=== PATIENT | male | born 1955 | race African-American/Black ===

== ENCOUNTER 2020-08-21 17:56 | Inpatient (IN) ==
[2020-08-21] MEDS ORDERED: SODIUM CHLORIDE 0.9% 1000ML 1,000 ML IV SCH ×3 (18:15→20:14)
[2020-08-21] MEDS ORDERED: ACETAMINOPHEN 500 MG TAB PO STA (18:16)
[2020-08-21] MEDS ORDERED: VANCOMYCIN HCL 2,750 MG in SODIUM CHLORIDE 0.9% 500 ML IV ONE (18:16)
[2020-08-21] MEDS ORDERED: VANCOMYCIN CONSULT ACTIVE PRN (18:16)
--- NOTE | 2020-08-21 18:18 | Emergency Department Note ---
Impression & Plan Sepsis, Cellulitis, High serum chloride, Pneumonia ED Provider Note NAME: GUILLERMO LR AGE: 64 SEX: M : 1955 ARRIVES VIA: Walk-In INFORMANT: Patient ED PROVIDER(S): Johnny Daniels DO CHIEF COMPLAINT: not feeling well HPI: Patient is a 64-year-old diabetic who presents to the ER for chest wall abscess that has been draining. He notes it started as a pimple about 3 weeks ago and has been getting worse. Today he has noticed chills. They had him on IV clindamycin and they believe that her reaction and consequently switched him to Bactrim and they believe he continues to have a reaction so they put him on Rocephin and start him on steroids and Benadryl today. He admits to fevers. No belly pain nausea vomiting or diarrhea. No dysuria, urgency, or frequency. No cough or runny nose. No other exacerbating or remitting factors. ROS: See above HPI for pertinent positives & negatives. A total of 10 systems reviewed and were otherwise negative. PAST MEDICAL HISTORY:See Below PAST SURGICAL HISTORY:See Below FAMILY HISTORY:See Below SOCIAL HISTORY:See Below HOME MEDICATIONS:See Below ALLERGIES:See Below VITALS:See Below PHYSICAL EXAMINATION: GENERAL: Sitting up in bed, alert, ill-appearing, disheveled EYE EXAM: normal conjunctiva. OROPHARYNX: no exudate, no erythema, buccal mucosa, and tongue normal and mucous membranes are moist. Lower lip appears slightly larger than upper lip. NECK: supple, no nuchal rigidity, no adenopathy, non-tender LUNGS: Clear to auscultation. Normal chest wall mechanics HEART: Tachycardic, S1 normal and S2 normal ABDOMEN: abdomen soft, non-tender, normo-active bowel sounds, no masses, no rebound or guarding. BACK: Back is symmetrical on inspection and there is no deformity, no midline tenderness, no CVA tenderness. SKIN: Erythema and swelling over right pack with a small opening no drainage. Firmness in the right axilla with redness. UPPER EXTREMITIES: upper extremities are grossly normal. LOWER EXTREMITIES: No pitting edema. NEURO EXAM: Normal sensorium, cranial nerves II-XII grossly intact, normal speech, no gross weakness of arms, no gross weakness of legs. MEDICAL DECISION MAKING: Patient is a 62-year-old prisoner who is a diabetic who presents the ER for right chest wall abscess which has been draining. He was referred in as he was placed on Clinda and then switched to Bactrim and then switched to Rocephin as I believe he had a allergic reaction to Clinda and Bactrim. He is currently febrile and tachycardic with a heart rate in the 130s and temperature at 102. He denies all other complaints with exception of tenderness over his right chest wall and feeling hot and cold. IV was established blood work was obtained. He was given IV vancomycin and he had already received IM Rocephin earlier today. He already received steroids. Ultrasound shows a likely phlegmon which I do believe was an abscess that is currently draining. Chest x-ray did support a bilateral lower lobe infiltrates. Patient had already received IM Rocephin prio r to arrival. Patient was discussed with hospitalist for further evaluation. Triage Nursing notes reviewed. Limited review of prior medical records performed Vital Signs: reviewed and remarkable for febrile and tachy Differential diagnosis: Differential diagnosis includes etiologies such as sepsis, UTI, pneumonia, metabolic, electrolyte abnormalities, cardiac sources, intracerebral event, toxicologic, neurological, as well as others were entertained. ER treatment provided: See below Diagnostics interpreted by me: ECG: Sinus tachycardia rate of [address] wave changes in the high lateral leads QTC 386 Cardiac Monitoring: An order was placed for continuous cardiac monitoring. The monitor shows a rate of 135 with sinus rhythm. Laboratory studies: As stated above and show below. Imaging studies: Chest x-ray with bilateral lower lobes infiltrates Ultrasound chest shows cellulitis and no focal abscess Consultation(s): Discussed with hospitalist for further evaluation Procedures: none Critical Care: I have personally spent 32 minutes of critical care time in the direct management of this patient. This includes bedside care, interpretation of diagnostic studies, and testing, discussion with consultants, patient, and family members, and other required patient management activities. This 32 minutes is in excess of all separately billable procedures. Past Med/Surg History Social History Smoking Status: Former smoker Feels Safe at Home: Yes Allergies Allergies Allergy/AdvReac Type Severity Reaction Status Date / Time clindamycin Allergy Rash Verified 08/21/20 19:53 Pork/Porcine Containing Allergy Unknown Verified 08/21/20 19:53 Products sulfamethoxazole Allergy Rash Verified 08/21/20 19:53 [From Bactrim] trimethoprim [From Bactrim] Allergy Rash Verified 08/21/20 19:53 sodium chloride AdvReac Unknown Verified 08/21/20 19:53 [From [place] Nasal] Home Meds Home Medications Medication Instructions Recorded Confirmed aspirin [Aspir-Low] 81 mg PO DAILY 08/21/20 08/21/20 atorvastatin 20 mg PO DAILY 08/21/20 08/21/20 brimonidine 1 drp OPB TID 08/21/20 08/21/20 capsaicin 1 applic TOPICAL BID 08/21/20 08/21/20 ceftriaxone 1 g IV DAILY 08/21/20 08/21/20 cetirizine 10 mg PO DAILY 08/21/20 08/21/20 diphenhydramine HCl 50 mg PO TID 08/21/20 08/21/20 dorzolamide 1 drp OPB TID 08/21/20 08/21/20 ibuprofen 600 mg PO TID PRN 08/21/20 08/21/20 insulin glargine [Semglee U-100 60 unit SUBCUT DAILY 08/21/20 08/21/20 Insulin] latanoprost 1 drp OPB HS 08/21/20 08/21/20 lisinopril 5 mg PO DAILY 08/21/20 08/21/20 metformin 500 mg PO BID 08/21/20 08/21/20 methylprednisolone sodium succ 125 mg IM DAILY 08/21/20 08/21/20 [Solu-Medrol] timolol 1 drp OPB QAM 08/21/20 08/21/20 Results & Data (ED) Vital Signs Vital Signs - 24 hr 08/21/20 17:58 08/21/20 18:12 08/21/20 18:15 Temperature 37.4 C 39.0 C H Temperature Source Skin Oral Pulse Rate 147 H 132 H 132 H Pulse Rate [Right Finger] 133 H Pulse Rate from SpO2 Sensor 132 H 135 H Respiratory Rate 20 27 H 24 Respiratory Effort / Characteristics Non-Labored Spontaneous Non-Labored Spontaneous Respiratory Depth Normal Normal Respiratory Pattern Regular Regular Blood Pressure 111/82 146/86 H Blood Pressure [Right Arm] 146/86 H Blood Pressure Mean 91 106 Blood Pressure Mean [Right Arm] 106 Blood Pressure Position [Right Arm] Lying Pulse Oximetry 95 93 92 Oxygen Delivery Method Nasal Cannula Room Air Sepsis Recent Fever Within 48 Hours No Sepsis New/Unexplained Change in Mental Status N/A Sepsis Action Taken by Nursing No Action Required 08/21/20 18:20 08/21/20 18:26 08/21/20 18:30 Temperature Temperature Source Pulse Rate 132 H 132 H 129 H Pulse Rate [Right Finger] Pulse Rate from SpO2 Sensor 132 H Respiratory Rate 31 H 22 27 H Respiratory Effort / Characteristics Non-Labored Spontaneous Respiratory Depth Respiratory Pattern Blood Pressure Blood Pressure [Right Arm] Blood Pressure Mean Blood Pressure Mean [Right Arm] Blood Pressure Position [Right Arm] Pulse Oximetry 97 95 Oxygen Delivery Method Room Air Sepsis Recent Fever Within 48 Hours Sepsis New/Unexplained Change in Mental Status Sepsis Action Taken by Nursing 08/21/20 18:40 08/21/20 18:43 08/21/20 18:50 Temperature Temperature Source Pulse Rate 127 H 124 H Pulse Rate [Right Finger] Pulse Rate from SpO2 Sensor 127 H 124 H Respiratory Rate 24 24 Respiratory Effort / Characteristics Non-Labored Spontaneous Respiratory Depth Respiratory Pattern Blood Pressure Blood Pressure [Right Arm] Blood Pressure Mean Blood Pressure Mean [Right Arm] Blood Pressure Position [Right Arm] Pulse Oximetry 95 96 96 Oxygen Delivery Method Room Air Sepsis Recent Fever Within 48 Hours Sepsis New/Unexplained Change in Mental Status Sepsis Action Taken by Nursing 08/21/20 19:54 08/21/20 20:33 08/21/20 21:18 Temperature Temperature Source Pulse Rate Pulse Rate [Right Finger] 117 H 113 H 107 H Pulse Rate from SpO2 Sensor Respiratory Rate 20 20 20 Respiratory Effort / Characteristics Respiratory Depth Respiratory Pattern Blood Pressure Blood Pressure [Right Arm] 129/70 122/70 117/70 Blood Pressure Mean Blood Pressure Mean [Right Arm] 89 87 85 Blood Pressure Position [Right Arm] Pulse Oximetry 93 95 94 Oxygen Delivery Method Room Air Room Air Room Air Sepsis Recent Fever Within 48 Hours Sepsis New/Unexplained Change in Mental Status Sepsis Action Taken by Nursing Laboratory Data Result diagrams: 08/21/20 18:28 08/21/20 18:28 Lab Results 08/21/20 08/21/20 08/21/20 Range/Units 18:28 18:28 18:28 WBC 8.60 (4.8-10.8) K/uL RBC 5.07 (4.7-6.1) M/uL Hgb 16.7 (14.0-18.0) g/dL Hct 47.6 (42-52) % MCV 93.9 (80-100) fL MCH 32.9 (25-34) pg MCHC 35.1 (32-36) g/dL RDW Std Deviation 43.7 (36.4-46.3) fL RDW Coeff of Samuel 12.8 (11.5-14.5) % Plt Count 155 (130-400) K/uL MPV 10.0 (7.4-10.4) fL Immature Gran % (Auto) 0.2 % Neut % (Auto) 88.8 % Lymph % (Auto) 6.4 % [place] % (Auto) 4.0 % Eos % (Auto) 0.6 % Baso % (Auto) 0.0 % Neut # (Auto) 7.64 H (1.4-6.5) K/uL Lymph # (Auto) 0.55 L (1.2-3.4) K/uL [place] # (Auto) 0.34 (0.11-0.59) K/uL Eos # (Auto) 0.05 (0-0.5) K/uL Baso # (Auto) 0.00 (0-0.2) K/uL Immature Gran # (Auto) 0.02 (0.00-0.02) K/uL PT (9.0-12.0) Seconds INR (0.9-1.1) APTT (21.0-31.0) Seconds PTT Ratio Sodium 138 (136-145) mmol/L Potassium 3.9 (3.5-5.1) mmol/L Chloride 109 H (98-107) mmol/L Carbon Dioxide 20 L (21-32) mmol/L Anion Gap 9.0 (3-11) BUN 14 (7-18) mg/dl Creatinine 1.34 (0.6-1.4) mg/dl Est Cr Clr Drug Dosing 72.6 ml/min Est GFR ( Amer) 65.3 ml/min Est GFR (Non-Af Amer) 56.4 ml/min BUN/Creatinine Ratio 10.1 (10-20) Glucose 214 H (70-99) mg/dl Lactate (0.4-2.0) mmol/L Calcium 9.1 (8.5-10.1) mg/dl Magnesium 1.9 (1.8-2.4) mg/dl Total Bilirubin 1.3 H (0.2-1) mg/dl AST 39 H (15-37) U/L ALT 47 (12-78) U/L Alkaline Phosphatase 106 (45-117) U/L Troponin I < 0.015 (0-0.045) ng/ml Total Protein 7.1 (6.4-8.2) gm/dl Albumin 3.4 (3.4-5.0) gm/dl Globulin 3.7 (2.5-4.0) gm/dl Albumin/Globulin Ratio 0.9 (0.9-2) Procalcitonin 0.85 H (0-0.5) ng/ml COVID-19 Eval Order SARS-CoV-2 (PCR) (Negative) 08/21/20 08/21/20 08/21/20 Range/Units 18:28 18:28 19:15 WBC (4.8-10.8) K/uL RBC (4.7-6.1) M/uL Hgb (14.0-18.0) g/dL Hct (42-52) % MCV (80-100) fL MCH (25-34) pg MCHC (32-36) g/dL RDW Std Deviation (36.4-46.3) fL RDW Coeff of Samuel (11.5-14.5) % Plt Count (130-400) K/uL MPV (7.4-10.4) fL Immature Gran % (Auto) % Neut % (Auto) % Lymph % (Auto) % [place] % (Auto) % Eos % (Auto) % Baso % (Auto) % Neut # (Auto) (1.4-6.5) K/uL Lymph # (Auto) (1.2-3.4) K/uL [place] # (Auto) (0.11-0.59) K/uL Eos # (Auto) (0-0.5) K/uL Baso # (Auto) (0-0.2) K/uL Immature Gran # (Auto) (0.00-0.02) K/uL PT 11.0 (9.0-12.0) Seconds INR 1.1 (0.9-1.1) APTT 22.4 (21.0-31.0) Seconds PTT Ratio 0.9 Sodium (136-145) mmol/L Potassium (3.5-5.1) mmol/L Chloride (98-107) mmol/L Carbon Dioxide (21-32) mmol/L Anion Gap (3-11) BUN (7-18) mg/dl Creatinine (0.6-1.4) mg/dl Est Cr Clr Drug Dosing ml/min Est GFR ( Amer) ml/min Est GFR (Non-Af Amer) ml/min BUN/Creatinine Ratio (10-20) Glucose (70-99) mg/dl Lactate 2.1 H* (0.4-2.0) mmol/L Calcium (8.5-10.1) mg/dl Magnesium (1.8-2.4) mg/dl Total Bilirubin (0.2-1) mg/dl AST (15-37) U/L ALT (12-78) U/L Alkaline Phosphatase (45-117) U/L Troponin I (0-0.045) ng/ml Total Protein (6.4-8.2) gm/dl Albumin (3.4-5.0) gm/dl Globulin (2.5-4.0) gm/dl Albumin/Globulin Ratio (0.9-2) Procalcitonin (0-0.5) ng/ml COVID-19 Eval Order Covid19 at [facility] SARS-CoV-2 (PCR) (Negative) 08/21/20 08/21/20 Range/Units 19:15 20:40 WBC (4.8-10.8) K/uL RBC (4.7-6.1) M/uL Hgb (14.0-18.0) g/dL Hct (42-52) % MCV (80-100) fL MCH (25-34) pg MCHC (32-36) g/dL RDW Std Deviation (36.4-46.3) fL RDW Coeff of Samuel (11.5-14.5) % Plt Count (130-400) K/uL MPV (7.4-10.4) fL Immature Gran % (Auto) % Neut % (Auto) % Lymph % (Auto) % [place] % (Auto) % Eos % (Auto) % Baso % (Auto) % Neut # (Auto) (1.4-6.5) K/uL Lymph # (Auto) (1.2-3.4) K/uL [place] # (Auto) (0.11-0.59) K/uL Eos # (Auto) (0-0.5) K/uL Baso # (Auto) (0-0.2) K/uL Immature Gran # (Auto) (0.00-0.02) K/uL PT (9.0-12.0) Seconds INR (0.9-1.1) APTT (21.0-31.0) Seconds PTT Ratio Sodium (136-145) mmol/L Potassium (3.5-5.1) mmol/L Chloride (98-107) mmol/L Carbon Dioxide (21-32) mmol/L Anion Gap (3-11) BUN (7-18) mg/dl Creatinine (0.6-1.4) mg/dl Est Cr Clr Drug Dosing ml/min Est GFR ( Amer) ml/min Est GFR (Non-Af Amer) ml/min BUN/Creatinine Ratio (10-20) Glucose (70-99) mg/dl Lactate 1.6 (0.4-2.0) mmol/L Calcium (8.5-10.1) mg/dl Magnesium (1.8-2.4) mg/dl Total Bilirubin (0.2-1) mg/dl AST (15-37) U/L ALT (12-78) U/L Alkaline Phosphatase (45-117) U/L Troponin I (0-0.045) ng/ml Total Protein (6.4-8.2) gm/dl Albumin (3.4-5.0) gm/dl Globulin (2.5-4.0) gm/dl Albumin/Globulin Ratio (0.9-2) Procalcitonin (0-0.5) ng/ml COVID-19 Eval Order SARS-CoV-2 (PCR) NEGATIVE (Negative) Administered Medications Discontinued Medications Acetaminophen (Acetaminophen 500 Mg Tab) 1,000 mg PO NOW STA Stop: 08/21/20 18:17 Last Admin: 08/21/20 18:30 Dose: 1,000 mg Documented by: [id number] Sodium Chloride (Nss 1000ml) 1,000 mls @ 999 mls/hr IV .Q1H1M VINCENT Stop: 08/21/20 21:14 Last Infusion: 08/21/20 23:07 Dose: 0 mls/hr Documented by: [id number] Admin: 08/21/20 20:24 Dose: 999 mls/hr Documented by: [id number] Sodium Chloride (Nss 1000ml) 1,000 mls @ 999 mls/hr IV .Q1H1M VINCENT Stop: 08/21/20 20:13 Last Infusion: 08/21/20 20:17 Dose: 0 mls/hr Documented by: [id number] Admin: 08/21/20 19:11 Dose: 999 mls/hr Documented by: [id number] Sodium Chloride (Nss 1000ml) 1,000 mls @ 999 mls/hr IV .Q1H1M VINCENT Stop: 08/21/20 19:14 Last Infusion: 08/21/20 19:11 Dose: 0 mls/hr Documented by: [id number] Admin: 08/21/20 18:26 Dose: 999 mls/hr Documented by: [id number] Vancomycin HCl 2,750 mg/ (Sodium Chloride) 555 mls @ 200 mls/hr IV NOW ONE Stop: 08/21/20 21:02 Last Admin: 08/21/20 18:53 Dose: 200 mls/hr Documented by: [id number] Imaging Data Radiologist's Impression: Chest X-Ray 08/21/20 18:13 XR chest 1V portable HISTORY: SEPSIS COMPARISON: Chest 07/11/2013. FINDINGS: No pneumothorax. No pleural effusions. The heart is normal in size. There are patchy bilateral lower lung zone airspace opacities with mild interstitial thickening. The upper lung zones appear clear. No evidence for pulmonary edema. IMPRESSION: Bilateral lower lung zone patchy airspace opacities. This likely represents a pneumonia and could be secondary to a viral process. ACT 112: Negative or not required by law. Electronically signed by: Milan Nogueira M.D. 08/21/2020 6:54 PM Soft Tissue Ultrasound 08/21/20 18:20 US softtissue [facility]/uprback CLINICAL HISTORY: r chest wall cellulitis COMPARISON STUDY: None. FINDINGS: Real-time sonographic imaging of the right chest was performed with guest experience representative images submitted. Thickening and increased echogenicity within the subcutaneous fat the right chest wall with associated subcutaneous edema. This favors a cellulitis. There is an ill-defined subcutaneous complex avascular collection at this location measuring 2.5 x 1.5 x 0.7 cm. This could represent a small phlegmon/developing abscess. IMPRESSION: 1. Thickening and increased echogenicity within the subcutaneous fat the right chest wall with associated subcutaneous edema. This favors a cellulitis. 2. There is an ill-defined subcutaneous complex avascular collection at this loc ation measuring 2.5 x 1.5 x 0.7 cm. This could represent a small phlegmon/developing abscess. ACT 112: Negative or not required by law. Electronically signed by: Milan Nogueira M.D. 08/21/2020 7:46 PM Discharge Plan Visit Data Chief Complaint: Skin Problem Stated Complaint: LUMP ON CHEST ED Provider: Johnny Daniels Discharge Problem: Sepsis, Cellulitis, High serum chloride, Pneumonia Patient Disposition: Admitted As Inpatient Discharge Instructions Interventions: ED Discharge Assessment Last Done: 08/21/20 23:02 Discharge Problem: Sepsis Qualifiers: Sepsis type: sepsis due to unspecified organism Sepsis acute organ dysfunction status: unspecified Qualified Code(s): A41.9 - Sepsis, unspecified organism Cellulitis Qualifiers: Site of cellulitis: unspecified site Qualified Code(s): L03.90 - Cellulitis, unspecified Pneumonia Qualifiers: Pneumonia type: due to unspecified organism Laterality: unspecified laterality Lung location: unspecified part of lung Qualified Code(s): J18.9 - Pneumonia, unspecified organism
[2020-08-21 18:47] LABS: Eosinophils # (auto) 0.05 K/uL (0-0.5); Eosinophils % (auto) 0.6 %; Hematocrit (blood only) 47.6 % (42-52); Hemoglobin 16.7 g/dL (14.0-18.0); Immature Granulocytes # (auto) 0.02 K/uL (0.00-0.02); Immature Granulocytes % (auto) 0.2 %; Lymphocytes # (auto) 0.55 K/uL (1.2-3.4); Lymphocytes % (auto) 6.4 %; Mean Corpuscular Hemoglobin 32.9 pg (25-34); Mean Corpuscular Hgb Conc 35.1 g/dL (32-36); Mean Corpuscular Volume 93.9 fL (80-100); Monocytes # (auto) 0.34 K/uL (0.11-0.59); Neutrophils # (auto) 7.64 K/uL (1.4-6.5); Neutrophils % (auto) 88.8 %; Platelet Count 155 K/uL (130-400); RDW Coefficient of Variation 12.8 % (11.5-14.5); RDW Standard Deviation 43.7 fL (36.4-46.3); Red Blood Count 5.07 M/uL (4.7-6.1)
--- NOTE | 2020-08-21 18:55 | XRay Report ---
XR chest 1V portable HISTORY: SEPSIS COMPARISON: Chest 07/11/2013. FINDINGS: No pneumothorax. No pleural effusions. The heart is normal in size. There are patchy bilate ral lower lung zone airspace opacities with mild interstitial thickening. The upper lung zones appear clear. No evidence for pulmonary edema. IMPRESSION: Bilateral lower lung zone patchy airspace opacities. This likely represents a pneumonia and could be secondary to a viral process. ACT 112: Negative or not required by law. Electronically signed by: Milan Nogueira M.D. 08/21/2020 6:54 PM
[2020-08-21 19:10] LABS: INR 1.1 (0.9-1.1); Partial Thromboplastin Ratio 0.9; Partial Thromboplastin Time 22.4 Seconds (21.0-31.0)
[2020-08-21 19:27] LABS: Alanine Aminotransferase 47 U/L (12-78); Albumin Level 3.4 gm/dl (3.4-5.0); Aspartate Aminotransferase 39 U/L (15-37); BUN Creatinine Ratio 10.1 (10-20); Blood Urea Nitrogen 14 mg/dl (7-18); Calcium 9.1 mg/dl (8.5-10.1); Carbon Dioxide 20 mmol/L (21-32); Chloride 109 mmol/L (98-107); Creatinine Clr Calc Pharmacy 72.6 ml/min; Est GFR (African American) 65.3 ml/min; Est GFR (Non-African American) 56.4 ml/min; Glucose 214 mg/dl (70-99); Magnesium 1.9 mg/dl (1.8-2.4); Potassium 3.9 mmol/L (3.5-5.1); Sodium 138 mmol/L (136-145)
[2020-08-21 19:31] LABS: Albumin Globulin Ratio 0.9 (0.9-2); Alkaline Phosphatase 106 U/L (45-117); Bilirubin,Total 1.3 mg/dl (0.2-1); Globulin 3.7 gm/dl (2.5-4.0); Total Protein 7.1 gm/dl (6.4-8.2); Troponin I < 0.015 ng/ml (0-0.045)
--- NOTE | 2020-08-21 19:47 | Ultrasound Report ---
US softtissue chstwall/uprback CLINICAL HISTORY: r chest wall cellulitis COMPARISON STUDY: None. FINDINGS: Real-time sonographic imaging of the right chest was performed with provider service representative images s ubmitted. Thickening and increased echogenicity within the subcutaneous fat the right chest wall with associated subcutaneous edema. This favors a cellulitis. There is an ill-defined subcutaneous comple x avascular collection at this location measuring 2.5 x 1.5 x 0.7 cm. This could represent a small ph legmon/developing abscess. IMPRESSION: 1. Thickening and increased echogenicity within the subcutaneous fat the right chest wall with associ ated subcutaneous edema. This favors a cellulitis. 2. There is an ill-defined subcutaneous complex avascular collection at this location measuring 2.5 x 1.5 x 0.7 cm. This could represent a small phlegmon/developing abscess. ACT 112: Negative or not required by law. Electronically signed by: Milan Nogueira M.D. 08/21/2020 7:46 PM
--- NOTE | 2020-08-21 21:47 | History & Physical Report ---
Date of Service August 21, 2020 Assessment & Plan (1) Cellulitis: Benito Goel is a 64-year-old male with past medical history significant for hypertension, diabetes, hyperlipidemia; who presents for concerns of lump on chest over the last week. Cellulitis: -Chest well-demarcated including into axillary fold for monitoring of progression or regression of erythema -Soft tissue ultrasound of chest wall demonstrating thickening with increased echogenicity within the subcu fat favoring cellulitis -CT chest without contrast demonstrating fat stranding without visualization of fluid collection or abscess -Lactate initially elevated in ED with subsequent downtrend -Prior to arrival patient had been receiving Bactrim/Clinda/ceftriaxone at varying times over the week without success and improvement -Uncertain if gram-negative coverage necessary at this time given patient's diabetes history -Continue vancomycin -Recheck skin in a.m. with potential expansion if indicated Diabetes: -Hold home oral regimen -BSG's ACHS -Sliding scale insulin ordered Hypertension: -Continue home lisinopril 5 mg daily Hyperlipidemia: -Continue home atorvastatin 20 mg daily Diet: Heart healthy/carb consistent CODE STATUS: Full code (2) HTN (hypertension): (3) HLD (hyperlipidemia): (4) Diabetes: History of Present Illness Primary Care Provider: [facility] Benito Goel is a 64-year-old male with past medical history significant for hypertension, diabetes, hyperlipidemia; who presents for concerns of lump on chest over the last week. Earlier this week patient noticed a lump/fluid collection over his right pec, this reportedly ruptured spontaneously several days ago. However over the last 2 days he has noticed new accumulation of fluid in that same spot with new onset of fevers, chills, sweats throughout this time. Was trialed on Bactrim, then Clinda, then Rocephin without success and resolution of infectious concern prior to presentation to the hospital this evening. Does not recall any history of boils that required lancing, or abscesses that required surgical drainage. Does not recall any history of MRSA infections. Allergies Allergy/AdvReac Type Severity Reaction Status Date / Time clindamycin Allergy Rash Verified 08/21/20 19:53 Pork/Porcine Containing Allergy Unknown Verified 08/21/20 19:53 Products sulfamethoxazole Allergy Rash Verified 08/21/20 19:53 [From Bactrim] trimethoprim [From Bactrim] Allergy Rash Verified 08/21/20 19:53 sodium chloride AdvReac Unknown Verified 08/21/20 19:53 [From [place] Nasal] Home Medications Medication Instructions Recorded Confirmed Type aspirin [Aspir-Low] 81 mg PO DAILY 08/21/20 08/21/20 History atorvastatin 20 mg PO DAILY 08/21/20 08/21/20 History brimonidine 1 drp OPB TID 08/21/20 08/21/20 History capsaicin 1 applic TOPICAL BID 08/21/20 08/21/20 History ceftriaxone 1 g IV DAILY 08/21/20 08/21/20 History cetirizine 10 mg PO DAILY 08/21/20 08/21/20 History diphenhydramine HCl 50 mg PO TID 08/21/20 08/21/20 History dorzolamide 1 drp OPB TID 08/21/20 08/21/20 History ibuprofen 600 mg PO TID PRN 08/21/20 08/21/20 History insulin glargine [Semglee U-100 60 unit SUBCUT DAILY 08/21/20 08/21/20 History Insulin] latanoprost 1 drp OPB HS 08/21/20 08/21/20 History lisinopril 5 mg PO DAILY 08/21/20 08/21/20 History metformin 500 mg PO BID 08/21/20 08/21/20 History methylprednisolone sodium succ 125 mg IM DAILY 08/21/20 08/21/20 History [Solu-Medrol] timolol 1 drp OPB QAM 08/21/20 08/21/20 History Past Med/Surg History Medical History (Updated 08/22/20 @ 12:20 by Margot Fitzpatrick MD) Chronic prostatitis Diabetes Elevated PSA Glaucoma Hepatitis C HLD (hyperlipidemia) HTN (hypertension) Pulmonary nodule Social History Smoking Status: Former smoker Smoking End Date: 1 and a half years ago; Hx Alcohol Use: No Hx Substance Use: No Preferred Language: Latvian Communication Ability: Effective Utility Tech Required: No Beliefs That Will Affect Care: Moravian Moravian Beliefs: Caodaism Current Living Situation: Other Current Living Situation Comment: [facility] Other Information That Helps Us Care for You: No Feels Safe at Home: Yes Safety Concerns: Feels Safe At This Time Assistive Devices: Glasses Review of Systems Review of Systems: All systems reviewed & are unremarkable except as noted in HPI & below Physical Exam Constitutional: WD/WN, vitals as above Eyes: PERRL, conjunctivae normal, anicteric sclerae Respiratory: normal respiratory effort, lungs clear to auscultation Auscultation: no crackles, no rales, no rhonchi and no wheezes Cardiovascular: Rate/Rhythm: regular rate and regular rhythm Heart Sounds: no gallop, no murmur and no cardiac rub Vessels: normal peripheral pulses; no JVD Extremities: no edema Gastrointestinal (Abdomen): Inspection/Auscultation: normal bowel sounds; abdomen not distended Percussion/Palpation: abdomen soft; abdomen nontender and no guarding Musculoskeletal: no cyanosis or clubbing, extremities motor strength 5/5 Skin: Hyperpigmented patch over right pectoral muscle with signs of previous fluid collection, and erythema; without fluctuance, or tenderness Neurologic: PERRL, EOMI, accommodation nl, no face palsy, no dysarthria CN's II-XI intact bilaterally and moves all extremities Psychiatric: Orientation: alert and oriented x 3 Results & Data Results & Data ([facility]) Vital Signs (Past 12 Hours) Vital Signs Temp Pulse Pulse Resp BP BP Pulse Ox 08/21/20 21:18 107 H 20 117/70 94 08/21/20 20:33 113 H 20 122/70 95 08/21/20 19:54 117 H 20 129/70 93 08/21/20 18:50 124 H 24 96 08/21/20 18:43 96 08/21/20 18:40 127 H 24 95 08/21/20 18:30 129 H 27 H 08/21/20 18:26 132 H 22 95 08/21/20 18:20 132 H 31 H 97 08/21/20 18:15 132 H 24 92 08/21/20 18:12 39.0 C H 132 H 133 H 27 H 146/86 H 146/86 H 93 08/21/20 17:58 37.4 C 147 H 20 111/82 95 Laboratory Results 08/22/20 08/22/20 08/21/20 Range/Units Unknown 00:31 23:37 WBC (4.8-10.8) K/uL RBC (4.7-6.1) M/uL Hgb (14.0-18.0) g/dL Hct (42-52) % MCV (80-100) fL MCH (25-34) pg MCHC (32-36) g/dL RDW Std Deviation (36.4-46.3) fL RDW Coeff of Samuel (11.5-14.5) % Plt Count (130-400) K/uL MPV (7.4-10.4) fL Immature Gran % (Auto) % Neut % (Auto) % Lymph % (Auto) % Davis % (Auto) % Eos % (Auto) % Baso % (Auto) % Neut # (Auto) (1.4-6.5) K/uL Lymph # (Auto) (1.2-3.4) K/uL Davis # (Auto) (0.11-0.59) K/uL Eos # (Auto) (0-0.5) K/uL Baso # (Auto) (0-0.2) K/uL Immature Gran # (Auto) (0.00-0.02) K/uL PT (9.0-12.0) Seconds INR (0.9-1.1) APTT (21.0-31.0) Seconds PTT Ratio Sodium (136-145) mmol/L Potassium (3.5-5.1) mmol/L Chloride (98-107) mmol/L Carbon Dioxide (21-32) mmol/L Anion Gap (3-11) BUN (7-18) mg/dl Creatinine (0.6-1.4) mg/dl Est Cr Clr Drug Dosing ml/min Est GFR ( Amer) ml/min Est GFR (Non-Af Amer) ml/min BUN/Creatinine Ratio (10-20) Glucose (70-99) mg/dl POC Glucose 255 H (70-99) mg/dl Lactate (0.4-2.0) mmol/L Calcium (8.5-10.1) mg/dl Magnesium (1.8-2.4) mg/dl Total Bilirubin (0.2-1) mg/dl AST (15-37) U/L ALT (12-78) U/L Alkaline Phosphatase (45-117) U/L Troponin I (0-0.045) ng/ml Total Protein (6.4-8.2) gm/dl Albumin (3.4-5.0) gm/dl Globulin (2.5-4.0) gm/dl Albumin/Globulin Ratio (0.9-2) Procalcitonin (0-0.5) ng/ml Urine Color Yellow Urine Appearance Clear (Clear) Urine pH 5.0 (4.5-7.5) Ur Specific [place] 1.024 (1.000-1.030) Urine Protein Negative (Negative) Urine Glucose (UA) 3+ H (Negative) Urine Ketones 2+ H (Negative) Urine Blood Negative (Negative) Urine Nitrite Negative (Negative) Urine Bilirubin Negative (Negative) Urine Urobilinogen Negative (Negative) Ur Leukocyte Esterase Negative (Negative) Nasal Screen MRSA (PCR) Negative (Negative) COVID-19 Eval Order SARS-CoV-2 (PCR) (Negative) 08/21/20 08/21/20 08/21/20 Range/Units 20:40 19:15 19:15 WBC (4.8-10.8) K/uL RBC (4.7-6.1) M/uL Hgb (14.0-18.0) g/dL Hct (42-52) % MCV (80-100) fL MCH (25-34) pg MCHC (32-36) g/dL RDW Std Deviation (36.4-46.3) fL RDW Coeff of Samuel (11.5-14.5) % Plt Count (130-400) K/uL MPV (7.4-10.4) fL Immature Gran % (Auto) % Neut % (Auto) % Lymph % (Auto) % Davis % (Auto) % Eos % (Auto) % Baso % (Auto) % Neut # (Auto) (1.4-6.5) K/uL Lymph # (Auto) (1.2-3.4) K/uL Davis # (Auto) (0.11-0.59) K/uL Eos # (Auto) (0-0.5) K/uL Baso # (Auto) (0-0.2) K/uL Immature Gran # (Auto) (0.00-0.02) K/uL PT (9.0-12.0) Seconds INR (0.9-1.1) APTT (21.0-31.0) Seconds PTT Ratio Sodium (136-145) mmol/L Potassium (3.5-5.1) mmol/L Chloride (98-107) mmol/L Carbon Dioxide (21-32) mmol/L Anion Gap (3-11) BUN (7-18) mg/dl Creatinine (0.6-1.4) mg/dl Est Cr Clr Drug Dosing ml/min Est GFR ( Amer) ml/min Est GFR (Non-Af Amer) ml/min BUN/Creatinine Ratio (10-20) Glucose (70-99) mg/dl POC Glucose (70-99) mg/dl Lactate 1.6 (0.4-2.0) mmol/L Calcium (8.5-10.1) mg/dl Magnesium (1.8-2.4) mg/dl Total Bilirubin (0.2-1) mg/dl AST (15-37) U/L ALT (12-78) U/L Alkaline Phosphatase (45-117) U/L Troponin I (0-0.045) ng/ml Total Protein (6.4-8.2) gm/dl Albumin (3.4-5.0) gm/dl Globulin (2.5-4.0) gm/dl Albumin/Globulin Ratio (0.9-2) Procalcitonin (0-0.5) ng/ml Urine Color Urine Appearance (Clear) Urine pH (4.5-7.5) Ur Specific [place] (1.000-1.030) Urine Protein (Negative) Urine Glucose (UA) (Negative) Urine Ketones (Negative) Urine Blood (Negative) Urine Nitrite (Negative) Urine Bilirubin (Negative) Urine Urobilinogen (Negative) Ur Leukocyte Esterase (Negative) Nasal Screen MRSA (PCR) (Negative) COVID-19 Eval Order Covid19 at [facility] SARS-CoV-2 (PCR) NEGATIVE (Negative) 08/21/20 08/21/20 08/21/20 Range/Units 18:28 18:28 18:28 WBC 8.60 (4.8-10.8) K/uL RBC 5.07 (4.7-6.1) M/uL Hgb 16.7 (14.0-18.0) g/dL Hct 47.6 (42-52) % MCV 93.9 (80-100) fL MCH 32.9 (25-34) pg MCHC 35.1 (32-36) g/dL RDW Std Deviation 43.7 (36.4-46.3) fL RDW Coeff of Samuel 12.8 (11.5-14.5) % Plt Count 155 (130-400) K/uL MPV 10.0 (7.4-10.4) fL Immature Gran % (Auto) 0.2 % Neut % (Auto) 88.8 % Lymph % (Auto) 6.4 % Davis % (Auto) 4.0 % Eos % (Auto) 0.6 % Baso % (Auto) 0.0 % Neut # (Auto) 7.64 H (1.4-6.5) K/uL Lymph # (Auto) 0.55 L (1.2-3.4) K/uL Davis # (Auto) 0.34 (0.11-0.59) K/uL Eos # (Auto) 0.05 (0-0.5) K/uL Baso # (Auto) 0.00 (0-0.2) K/uL Immature Gran # (Auto) 0.02 (0.00-0.02) K/uL PT 11.0 (9.0-12.0) Seconds INR 1.1 (0.9-1.1) APTT 22.4 (21.0-31.0) Seconds PTT Ratio 0.9 Sodium (136-145) mmol/L Potassium (3.5-5.1) mmol/L Chloride (98-107) mmol/L Carbon Dioxide (21-32) mmol/L Anion Gap (3-11) BUN (7-18) mg/dl Creatinine (0.6-1.4) mg/dl Est Cr Clr Drug Dosing ml/min Est GFR ( Amer) ml/min Est GFR (Non-Af Amer) ml/min BUN/Creatinine Ratio (10-20) Glucose (70-99) mg/dl POC Glucose (70-99) mg/dl Lactate 2.1 H* (0.4-2.0) mmol/L Calcium (8.5-10.1) mg/dl Magnesium (1.8-2.4) mg/dl Total Bilirubin (0.2-1) mg/dl AST (15-37) U/L ALT (12-78) U/L Alkaline Phosphatase (45-117) U/L Troponin I (0-0.045) ng/ml Total Protein (6.4-8.2) gm/dl Albumin (3.4-5.0) gm/dl Globulin (2.5-4.0) gm/dl Albumin/Globulin Ratio (0.9-2) Procalcitonin (0-0.5) ng/ml Urine Color Urine Appearance (Clear) Urine pH (4.5-7.5) Ur Specific [place] (1.000-1.030) Urine Protein (Negative) Urine Glucose (UA) (Negative) Urine Ketones (Negative) Urine Blood (Negative) Urine Nitrite (Negative) Urine Bilirubin (Negative) Urine Urobilinogen (Negative) Ur Leukocyte Esterase (Negative) Nasal Screen MRSA (PCR) (Negative) COVID-19 Eval Order SARS-CoV-2 (PCR) (Negative) 08/21/20 08/21/20 Range/Units 18:28 18:28 WBC (4.8-10.8) K/uL RBC (4.7-6.1) M/uL Hgb (14.0-18.0) g/dL Hct (42-52) % MCV (80-100) fL MCH (25-34) pg MCHC (32-36) g/dL RDW Std Deviation (36.4-46.3) fL RDW Coeff of Samuel (11.5-14.5) % Plt Count (130-400) K/uL MPV (7.4-10.4) fL Immature Gran % (Auto) % Neut % (Auto) % Lymph % (Auto) % Davis % (Auto) % Eos % (Auto) % Baso % (Auto) % Neut # (Auto) (1.4-6.5) K/uL Lymph # (Auto) (1.2-3.4) K/uL Davis # (Auto) (0.11-0.59) K/uL Eos # (Auto) (0-0.5) K/uL Baso # (Auto) (0-0.2) K/uL Immature Gran # (Auto) (0.00-0.02) K/uL PT (9.0-12.0) Seconds INR (0.9-1.1) APTT (21.0-31.0) Seconds PTT Ratio Sodium 138 (136-145) mmol/L Potassium 3.9 (3.5-5.1) mmol/L Chloride 109 H (98-107) mmol/L Carbon Dioxide 20 L (21-32) mmol/L Anion Gap 9.0 (3-11) BUN 14 (7-18) mg/dl Creatinine 1.34 (0.6-1.4) mg/dl Est Cr Clr Drug Dosing 72.6 ml/min Est GFR ( Amer) 65.3 ml/min Est GFR (Non-Af Amer) 56.4 ml/min BUN/Creatinine Ratio 10.1 (10-20) Glucose 214 H (70-99) mg/dl POC Glucose (70-99) mg/dl Lactate (0.4-2.0) mmol/L Calcium 9.1 (8.5-10.1) mg/dl Magnesium 1.9 (1.8-2.4) mg/dl Total Bilirubin 1.3 H (0.2-1) mg/dl AST 39 H (15-37) U/L ALT 47 (12-78) U/L Alkaline Phosphatase 106 (45-117) U/L Troponin I < 0.015 (0-0.045) ng/ml Total Protein 7.1 (6.4-8.2) gm/dl Albumin 3.4 (3.4-5.0) gm/dl Globulin 3.7 (2.5-4.0) gm/dl Albumin/Globulin Ratio 0.9 (0.9-2) Procalcitonin 0.85 H (0-0.5) ng/ml Urine Color Urine Appearance (Clear) Urine pH (4.5-7.5) Ur Specific [place] (1.000-1.030) Urine Protein (Negative) Urine Glucose (UA) (Negative) Urine Ketones (Negative) Urine Blood (Negative) Urine Nitrite (Negative) Urine Bilirubin (Negative) Urine Urobilinogen (Negative) Ur Leukocyte Esterase (Negative) Nasal Screen MRSA (PCR) (Negative) COVID-19 Eval Order SARS-CoV-2 (PCR) (Negative) Medications Administered Current Inpatient Medications Acetaminophen (Acetaminophen 325 Mg Tab) 650 mg PO Q4H PRN PRN Reason: pain/fever Stop: 09/20/20 23:34 Al Hydrox/Mg Hydrox/Simethicone (Aluminum/Magnesium Susp 30 Ml Udc) 30 ml PO Q6H PRN PRN Reason: Dyspepsia Stop: 09/20/20 23:34 Aspirin (Aspirin 81 Mg Ectab) 81 mg PO DAILY VINCENT Stop: 09/21/20 08:59 Atorvastatin Calcium (Atorvastatin 20 Mg Tab) 20 mg PO DAILY VINCENT Stop: 09/21/20 08:59 Cetirizine HCl (Cetirizine Hcl 10 Mg Tablet) 10 mg PO DAILY VINCENT Stop: 09/21/20 08:59 Dextrose (Dextrose 50% 50 Ml Syringe) 25 - 50 ml IV UD PRN; Protocol PRN Reason: Hypoglycemia Protocol Stop: 09/20/20 23:34 Glucagon (Glucagon For Inj 1 Mg Vial) 1 mg SQ UD PRN; Protocol PRN Reason: Hypoglycemia Protocol Stop: 09/20/20 23:34 Glucose (Glucose 10 Tabs/Tube) 4 - 8 tabs PO UD PRN; Protocol PRN Reason: Hypoglycemia Protocol Stop: 09/20/20 23:34 Glucose (Glucose 40% Gel 15 Gm Tube) 15 - 30 gm PO UD PRN; Protocol PRN Reason: Hypoglycemia Protocol Stop: 09/20/20 23:34 Vancomycin HCl 1,500 mg/ (Sodium Chloride) 530 mls @ 200 mls/hr IV Q12H VINCENT Stop: 08/29/20 05:59 Last Admin: 08/22/20 05:15 Dose: 200 mls/hr Documented by: Ibuprofen (Ibuprofen 600 Mg Tab) 600 mg PO TID PRN PRN Reason: Pain Stop: 09/20/20 23:34 Insulin Aspart (Insulin Aspart 100 Units/Ml 3 Ml Pen) 0 units SC ACHS VINCENT Stop: 09/21/20 01:29 Last Admin: 08/22/20 01:44 Dose: 6 units Documented by: Lisinopril (Lisinopril 5 Mg Tab) 5 mg PO DAILY VINCENT Stop: 09/21/20 08:59 Magnesium Hydroxide (Magnesium Hydroxide Susp 30 Ml Udc) 30 ml PO Q6H PRN PRN Reason: Constipation Stop: 09/20/20 23:34 Miscellaneous (Carbohydrates For Hypoglycemia ) 15 - 30 gm PO UD PRN PRN Reason: Hypoglycemia Protocol Stop: 09/20/20 23:34 Miscellaneous Information (Vancomycin Consult Active) 1 ea N/A UD PRN PRN Reason: Consult Stop: 09/20/20 18:15 Ondansetron HCl (Ondansetron Inj 2 Mg/Ml 2 Ml Vial) 4 mg IV Q6H PRN PRN Reason: Nausea Stop: 09/20/20 23:34 Polyethylene Glycol (Polyethylene (Miralax) 17 Gm Pack) 17 gm PO DAILY PRN PRN Reason: Constipation Stop: 09/20/20 23:34 Supervising Physician Co-Signing Physician Notes Attending addendum: I have physically seen this patient, have supervised the medical residents activities, and agree with the H&P unless as otherwise noted. Assessment and Plan: Chest wall cellulitis/phlegmon/abscess- History of recent treatment with Bactrim, Clinda and ceftriaxone- Admitted on vancomycin IV and ceftriaxone IV due to current living situation Monitor closely to see if surgical drainage is necessary Pulmonary- Chest x-ray suggestive of bilateral lower lobe infiltrates, but no overt symptoms at this point, and COVID-19 negative Follow clinical exam closely for now Diabetes mellitus- Patient Accu-Cheks before meals and at bedtime with NovoLog coverage per scale Hold home regimen check hemoglobin A1c Hypertension- Hold lisinopril 5 mg daily Hyperlipidemia- Continue atorvastatin 20 mg daily Remaining orders and notations as noted Resident Activity Tracking Resident Involvement: Resident Care Provided Care Provided: Adult Hospital Medicine (1) Cellulitis Site of cellulitis: unspecified site Qualified Code(s): L03.90 - Cellulitis, unspecified
[2020-08-21] MEDS ORDERED: GLUCOSE 10 TABS/TUBE PO PRN (23:35)
[2020-08-21] MEDS ORDERED: ACETAMINOPHEN 325 MG TAB PO PRN (23:35)
[2020-08-21] MEDS ORDERED: GLUCAGON FOR INJ 1 MG VIAL SQ PRN (23:35)
[2020-08-21] MEDS ORDERED: CARBOHYDRATES FOR HYPOGLYCEMIA PO PRN (23:35)
[2020-08-21] MEDS ORDERED: MAGNESIUM HYDROXIDE SUSP 30 ML UDC PO PRN (23:35)
[2020-08-21] MEDS ORDERED: ONDANSETRON INJ 2 MG/ML 2 ML VIAL IV PRN (23:35)
[2020-08-21] MEDS ORDERED: GLUCOSE 40% GEL 15 GM TUBE PO PRN (23:35)
[2020-08-21] MEDS ORDERED: POLYETHYLENE (MIRALAX) 17 GM PACK PO PRN (23:35)
[2020-08-21] MEDS ORDERED: DEXTROSE 50% 50 ML SYRINGE IV PRN (23:35)
[2020-08-21] MEDS ORDERED: ALUMINUM/MAGNESIUM SUSP 30 ML UDC PO PRN (23:35)
[2020-08-22] MEDS: INSULIN ASPART 100 UNITS/ML 3 ML PEN SC SCH ×5 (01:44→21:02)
[2020-08-22] MEDS ORDERED: diphenhydrAMINE Capsule 25 MG CAP PO STA (02:02)
[2020-08-22 02:11] LABS: Appearance Urine Clear (Clear); Bilirubin Urine Negative (Negative); Blood Urine Negative (Negative); Color Urine Yellow; Glucose Urine UA 3+ (Negative); Ketones Urine 2+ (Negative); Leukocyte Esterase Urine Negative (Negative); Nitrite Urine Negative (Negative); Protein Urine Negative (Negative); Specific Gravity Urine 1.024 (1.000-1.030); Urobilinogen Urine Negative (Negative)
[2020-08-22] MEDS: VANCOMYCIN HCL 1,500 MG in SODIUM CHLORIDE 0.9% 500 ML IV SCH ×2 (05:15→17:54)
[2020-08-22 07:51] LABS: Eosinophils # (auto) 0.02 K/uL (0-0.5); Eosinophils % (auto) 0.2 %; Hematocrit (blood only) 41.4 % (42-52); Hemoglobin 14.4 g/dL (14.0-18.0); Immature Granulocytes # (auto) 0.01 K/uL (0.00-0.02); Immature Granulocytes % (auto) 0.1 %; Lymphocytes # (auto) 0.92 K/uL (1.2-3.4); Lymphocytes % (auto) 8.1 %; Mean Corpuscular Hemoglobin 32.5 pg (25-34); Mean Corpuscular Hgb Conc 34.8 g/dL (32-36); Mean Corpuscular Volume 93.5 fL (80-100); Mean Platelet Volume 9.9 fL (7.4-10.4); Monocytes # (auto) 0.25 K/uL (0.11-0.59); Monocytes % (auto) 2.2 %; Neutrophils # (auto) 10.22 K/uL (1.4-6.5); Neutrophils % (auto) 89.4 %; Platelet Count 136 K/uL (130-400); RDW Coefficient of Variation 12.6 % (11.5-14.5); RDW Standard Deviation 42.9 fL (36.4-46.3); Red Blood Count 4.43 M/uL (4.7-6.1); White Blood Count 11.42 K/uL (4.8-10.8)
[2020-08-22] MEDS ORDERED: metFORMIN HCL 500 MG TAB PO SCH (08:00)
--- NOTE | 2020-08-22 08:20 | Pharmacy Report ---
Pharmacy Abx Dose Short Note - Date of Service August 22, 2020 - Assessment & Plan Assessment 64 year old M receiving Vancomycin for treatment of chest wall cellulitis/possible abscess and pneumonia * PMHx significant for incarceration and T2DM * Imaging suggestive of pneumonia and cellulitis * Previously received Bactrim, Clindamycin and Ceftriaxone prior to admission * Febrile at 39oC upon admission, fever curve trending down. Leukocytosis of 11,400. Lactate 2.1, down to 1.6 now. Procalcitonin 0.85. * MRSA nasal swab negative. Blood cultures pending. * Attending declined gram negative coverage at this time Plan Vancomycin * Loading Dose: 2750 mg (25 mg/kg) IV x 1 * Maintenance Dose: 1500 mg (14 mg/kg) IV every 12 hours * Goal trough: ~15 mcg/mL * Trough level ordered for 08/23/20 prior to 0600 dose Pharmacy will continue to follow and will adjust dose/frequency as necessary. Thank you.
[2020-08-22 08:25] LABS: BUN Creatinine Ratio 15.4 (10-20); Calcium 8.2 mg/dl (8.5-10.1); Creatinine Clr Calc Pharmacy 96.3 ml/min; Est GFR (Non-African American) 79.3 ml/min; Magnesium 2.1 mg/dl (1.8-2.4); Potassium 4.1 mmol/L (3.5-5.1)
[2020-08-22 08:26] LABS: Phosphorus 2.2 mg/dl (2.5-4.9)
[2020-08-22] MEDS: lisinopril 5 MG TAB PO SCH (08:31)
[2020-08-22] MEDS: CETIRIZINE HCL 10 MG TABLET PO SCH (08:32)
[2020-08-22] MEDS: ASPIRIN 81 MG ECTAB PO SCH (08:32)
[2020-08-22] MEDS: ATORVASTATIN 20 MG TAB PO SCH (08:32)
[2020-08-22 08:39] LABS: Estimated Average Glucose 286 mg/dl; Hemoglobin A1C 11.6 % (4.5-5.6)
--- NOTE | 2020-08-22 09:27 | CT Scan Report ---
CT chest diagnostic wo con CT DOSE: 744.65 mGy.cm CLINICAL HISTORY: 64 years-old Male with chest cellulitis. Patient presents with cellulitis of the c hest wall TECHNIQUE: Multiaxial CT images of the chest were performed without contrast. A dose lowering techni que was utilized adhering to the principles of ALARA. COMPARISON: Chest radiograph 08/21/2020 FINDINGS: Unremarkable thyroid. Prominent and mildly enlarged right axillary chain lymph nodes measur e up to 10 mm. The heart is normal in size without pericardial effusion. Moderate coronary artery bulmaro cifications. No thoracic aortic aneurysm. No pneumothorax, pleural effusion or overt pulmonary edema. Paraseptal emphysema of the lung apices. Cystic changes of the lung bases. Bibasilar predominant sub pleural reticulation with associated groundglass opacities. 7 mm fissural nodule of the right midlung , image 132. 5 mm subpleural solid nodule of the right upper lobe, image 95. The central airways are patent. No pneumoperitoneum. Cholecystectomy. Patulous fluid-filled esophagus. Probable cyst of the superior pole left kidney, 4.5 cm. Moderate fecal retention. Mildly atrophic pancreas. Mild hepatic steatosis. There is moderate skin thickening with subcutaneous edema of the right chest wall. No fluid collecti on. The pectoralis musculature is within normal limits. No acute fracture or osseous erosion. Partial ly imaged lipoma of the right lateral abdominal wall, 3.9 cm. IMPRESSION: 1. Moderate skin thickening with subcutaneous edema of the right chest wall suggestive of cellulitis. No abscess, myositis or osteomyelitis. 2. Emphysema with chronic interstitial lung disease. 3. Mild right axillary chain adenopathy, likely reactive. 4. 5 mm right upper lobe and 7 mm fissural nodule of the right upper lung suggestive of a probable ly mph node. Follow-up guidelines provided below. 5. Patulous fluid-filled esophagus. Please refer to below summary of Fleischner criteria recommendations for follow-up of incidental CT n odules (Torey Castellano, Guidelines for management of small pulmonary nodules detected on CT scans: A sta tement from the Fleischner Society, Radiology 237: [phone].) SOLID NODULES Solitary nodule size: <6 mm * Low risk patients: no follow-up needed * high risk patients: optional CT at 12 months Solitary nodule size: 6-8 mm * Low risk patients: follow-up at 6-12 months, then consider further follow-up at 18-24 months * high risk patients: initial follow-up CT at 6-12 months and then at 18-24 months if no change Solitary nodule size: >8 mm * either low or high risk patients - consider follow-up CT at 3 months, and/or CT-PET, and/or biopsy Multiple nodules size: <6 mm * Low risk patients: no routine follow-up * high risk patients: optional CT at 12 months Multiple nodules size: 6-8 mm * Low risk patients: follow-up at 3-6 months, then consider further follow-up at 18-24 months * high risk patients: follow-up at 3-6 months, then at 18-24 months if no change Multiple nodules size: >8 mm * Low risk patients: follow-up at 3-6 months, then consider further follow-up at 18-24 months * high risk patients: follow-up at 3-6 months, then at 18-24 months if no change Note: newly detected indeterminate nodule in persons 35 years of age or older. * Low risk patients: minimal or absent history of smoking and/or other known risk factors * high risk patients: history of smoking or of other known risk factors (e.g. first degree relative with lung cancer, or exposure to asbestos, radon, uranium) * if a nodule up to 8 mm is partly solid or is ground glass further follow-up is required after 24 m onths to exclude possible slow growing adenocarcinoma (FREDDY) The above report was generated using voice recognition software. It may contain grammatical, syntax o r spelling errors. ACT 112: Negative or not required by law. Electronically signed by: Janes Valencia M.D. 08/22/2020 9:26 AM
[2020-08-22] MEDS: INSULIN GLARGINE SOLOSTAR 100 UNITS/ML 3 ML PEN SQ SCH (10:42)
[2020-08-22] MEDS: diphenhydrAMINE Capsule 25 MG CAP PO PRN ×2 (10:42→20:39)
[2020-08-22] MEDS: IBUPROFEN 600 MG TAB PO PRN (10:42)
--- NOTE | 2020-08-22 11:01 | Surgery Consultation ---
Date of Consultation August 22, 2020 Assessment & Plan (1) Cellulitis: Right chest cellulitis unresponsive to outpatient treatment. There is no clinical evidence of an abscess on exam or imaging. Small (2 cm) phlegmonous change may be site of prior abscess which drained spontaneously. Would treat with IV abx, if area coalesces into abscess, please reconsult and can drain at bedside. Discussed with Dr. Fitzpatrick. Will sign off - please call with questions. History of Present Illness Reason for Consultation: cellulitis Requesting Physician: Margot Fitzpatrick MD Attending Physician: Margot Fitzpatrick MD History of Present Illness 64 yr old prisoner admitted with right chest wall cellulitis unresponsive to outpatient treatment. Noted a lump on his right chest over the past week. This ruptured spontaneously several days ago but in the last 2 days, he feel another firm lump in the area. Has been on bactrim, clindamyinc and rocephin without success. PMHx notable for diabetes. Does not recall any history of MRSA infections. Imaging done including ultrasound and chest CT scan. Allergies Allergy/AdvReac Type Severity Reaction Status Date / Time clindamycin Allergy Rash Verified 08/21/20 19:53 Pork/Porcine Containing Allergy Unknown Verified 08/21/20 19:53 Products sulfamethoxazole Allergy Rash Verified 08/21/20 19:53 [From Bactrim] trimethoprim [From Bactrim] Allergy Rash Verified 08/21/20 19:53 sodium chloride AdvReac Unknown Verified 08/21/20 19:53 [From [place] Nasal] Home Medications Medication Instructions Recorded Confirmed Type aspirin [Aspir-Low] 81 mg PO DAILY 08/21/20 08/21/20 History atorvastatin 20 mg PO DAILY 08/21/20 08/21/20 History brimonidine 1 drp OPB TID 08/21/20 08/21/20 History capsaicin 1 applic TOPICAL BID 08/21/20 08/21/20 History ceftriaxone 1 g IV DAILY 08/21/20 08/21/20 History cetirizine 10 mg PO DAILY 08/21/20 08/21/20 History diphenhydramine HCl 50 mg PO TID 08/21/20 08/21/20 History dorzolamide 1 drp OPB TID 08/21/20 08/21/20 History ibuprofen 600 mg PO TID PRN 08/21/20 08/21/20 History insulin glargine [Semglee U-100 60 unit SUBCUT DAILY 08/21/20 08/21/20 History Insulin] latanoprost 1 drp OPB HS 08/21/20 08/21/20 History lisinopril 5 mg PO DAILY 08/21/20 08/21/20 History metformin 500 mg PO BID 08/21/20 08/21/20 History methylprednisolone sodium succ 125 mg IM DAILY 08/21/20 08/21/20 History [Solu-Medrol] timolol 1 drp OPB QAM 08/21/20 08/21/20 History Patient History Social History Smoking Status: Former smoker Smoking End Date: 1 and a half years ago; Hx Alcohol Use: No Hx Substance Use: No Preferred Language: Latvian Communication Ability: Effective Accounting Recruiter Required: No Beliefs That Will Affect Care: Denominational Denominational Beliefs: Church Current Living Situation: Other Current Living Situation Comment: [facility] Other Information That Helps Us Care for You: No Feels Safe at Home: Yes Safety Concerns: Feels Safe At This Time Assistive Devices: Glasses Review of Systems Review of Systems: All systems reviewed & are unremarkable except as noted in HPI & below Physical Exam Constitutional: well developed and well nourished; no acute distress Skin: right chest with a 2 cm firm, indurated area located at 12:00 5 cm FN in the midst of an indurated, hyperpigmented right chest extending into the axillary fold and down past inframammary crease. No fluctuance, no clinical sign of abscess. Skin is peeling. Results & Data ([facility]) Vital Signs (Past 12 Hours) Vital Signs Temp Pulse Resp BP Pulse Ox 08/22/20 07:53 36.9 C 90 16 121/64 95 08/21/20 23:51 36.6 C 100 H 16 146/74 H 95 08/21/20 23:01 36.8 C 102 H 20 117/59 L 96 Laboratory Results 08/22/20 08/22/20 08/22/20 Range/Units Unknown 08:17 06:55 WBC (4.8-10.8) K/uL RBC (4.7-6.1) M/uL Hgb (14.0-18.0) g/dL Hct (42-52) % MCV (80-100) fL MCH (25-34) pg MCHC (32-36) g/dL RDW Std Deviation (36.4-46.3) fL RDW Coeff of Samuel (11.5-14.5) % Plt Count (130-400) K/uL MPV (7.4-10.4) fL Immature Gran % (Auto) % Neut % (Auto) % Lymph % (Auto) % Swisher % (Auto) % Eos % (Auto) % Baso % (Auto) % Neut # (Auto) (1.4-6.5) K/uL Lymph # (Auto) (1.2-3.4) K/uL Swisher # (Auto) (0.11-0.59) K/uL Eos # (Auto) (0-0.5) K/uL Baso # (Auto) (0-0.2) K/uL Immature Gran # (Auto) (0.00-0.02) K/uL PT (9.0-12.0) Seconds INR (0.9-1.1) APTT (21.0-31.0) Seconds PTT Ratio Sodium (136-145) mmol/L Potassium (3.5-5.1) mmol/L Chloride (98-107) mmol/L Carbon Dioxide (21-32) mmol/L Anion Gap (3-11) BUN (7-18) mg/dl Creatinine (0.6-1.4) mg/dl Est Cr Clr Drug Dosing ml/min Est GFR ( Amer) ml/min Est GFR (Non-Af Amer) ml/min BUN/Creatinine Ratio (10-20) Glucose (70-99) mg/dl POC Glucose 286 H (70-99) mg/dl Estimat Average Glucose mg/dl Hemoglobin A1c (4.5-5.6) % Lactate (0.4-2.0) mmol/L Calcium (8.5-10.1) mg/dl Phosphorus (2.5-4.9) mg/dl Magnesium (1.8-2.4) mg/dl Total Bilirubin (0.2-1) mg/dl AST (15-37) U/L ALT (12-78) U/L Alkaline Phosphatase (45-117) U/L Troponin I (0-0.045) ng/ml Total Protein (6.4-8.2) gm/dl Albumin (3.4-5.0) gm/dl Globulin (2.5-4.0) gm/dl Albumin/Globulin Ratio (0.9-2) Procalcitonin 3.66 H (0-0.5) ng/ml Urine Color Yellow Urine Appearance Clear (Clear) Urine pH 5.0 (4.5-7.5) Ur Specific [place] 1.024 (1.000-1.030) Urine Protein Negative (Negative) Urine Glucose (UA) 3+ H (Negative) Urine Ketones 2+ H (Negative) Urine Blood Negative (Negative) Urine Nitrite Negative (Negative) Urine Bilirubin Negative (Negative) Urine Urobilinogen Negative (Negative) Ur Leukocyte Esterase Negative (Negative) Nasal Screen MRSA (PCR) (Negative) COVID-19 Eval Order SARS-CoV-2 (PCR) (Negative) 08/22/20 08/22/20 08/22/20 Range/Units 06:55 06:55 06:55 WBC 11.42 H (4.8-10.8) K/uL RBC 4.43 L (4.7-6.1) M/uL Hgb 14.4 (14.0-18.0) g/dL Hct 41.4 L (42-52) % MCV 93.5 (80-100) fL MCH 32.5 (25-34) pg MCHC 34.8 (32-36) g/dL RDW Std Deviation 42.9 (36.4-46.3) fL RDW Coeff of Samuel 12.6 (11.5-14.5) % Plt Count 136 (130-400) K/uL MPV 9.9 (7.4-10.4) fL Immature Gran % (Auto) 0.1 % Neut % (Auto) 89.4 % Lymph % (Auto) 8.1 % Swisher % (Auto) 2.2 % Eos % (Auto) 0.2 % Baso % (Auto) 0.0 % Neut # (Auto) 10.22 H (1.4-6.5) K/uL Lymph # (Auto) 0.92 L (1.2-3.4) K/uL Swisher # (Auto) 0.25 (0.11-0.59) K/uL Eos # (Auto) 0.02 (0-0.5) K/uL Baso # (Auto) 0.00 (0-0.2) K/uL Immature Gran # (Auto) 0.01 (0.00-0.02) K/uL PT (9.0-12.0) Seconds INR (0.9-1.1) APTT (21.0-31.0) Seconds PTT Ratio Sodium 137 (136-145) mmol/L Potassium 4.1 (3.5-5.1) mmol/L Chloride 110 H (98-107) mmol/L Carbon Dioxide 19 L (21-32) mmol/L Anion Gap 8.0 (3-11) BUN 16 (7-18) mg/dl Creatinine 1.01 (0.6-1.4) mg/dl Est Cr Clr Drug Dosing 96.3 ml/min Est GFR ( Amer) 92.0 ml/min Est GFR (Non-Af Amer) 79.3 ml/min BUN/Creatinine Ratio 15.4 (10-20) Glucose 278 H (70-99) mg/dl POC Glucose (70-99) mg/dl Estimat Average Glucose 286 mg/dl Hemoglobin A1c 11.6 H (4.5-5.6) % Lactate (0.4-2.0) mmol/L Calcium 8.2 L (8.5-10.1) mg/dl Phosphorus 2.2 L (2.5-4.9) mg/dl Magnesium 2.1 (1.8-2.4) mg/dl Total Bilirubin (0.2-1) mg/dl AST (15-37) U/L ALT (12-78) U/L Alkaline Phosphatase (45-117) U/L Troponin I (0-0.045) ng/ml Total Protein (6.4-8.2) gm/dl Albumin (3.4-5.0) gm/dl Globulin (2.5-4.0) gm/dl Albumin/Globulin Ratio (0.9-2) Procalcitonin (0-0.5) ng/ml Urine Color Urine Appearance (Clear) Urine pH (4.5-7.5) Ur Specific [place] (1.000-1.030) Urine Protein (Negative) Urine Glucose (UA) (Negative) Urine Ketones (Negative) Urine Blood (Negative) Urine Nitrite (Negative) Urine Bilirubin (Negative) Urine Urobilinogen (Negative) Ur Leukocyte Esterase (Negative) Nasal Screen MRSA (PCR) (Negative) COVID-19 Eval Order SARS-CoV-2 (PCR) (Negative) 08/22/20 08/21/20 08/21/20 Range/Units 00:31 23:37 20:40 WBC (4.8-10.8) K/uL RBC (4.7-6.1) M/uL Hgb (14.0-18.0) g/dL Hct (42-52) % MCV (80-100) fL MCH (25-34) pg MCHC (32-36) g/dL RDW Std Deviation (36.4-46.3) fL RDW Coeff of Samuel (11.5-14.5) % Plt Count (130-400) K/uL MPV (7.4-10.4) fL Immature Gran % (Auto) % Neut % (Auto) % Lymph % (Auto) % Swisher % (Auto) % Eos % (Auto) % Baso % (Auto) % Neut # (Auto) (1.4-6.5) K/uL Lymph # (Auto) (1.2-3.4) K/uL Swisher # (Auto) (0.11-0.59) K/uL Eos # (Auto) (0-0.5) K/uL Baso # (Auto) (0-0.2) K/uL Immature Gran # (Auto) (0.00-0.02) K/uL PT (9.0-12.0) Seconds INR (0.9-1.1) APTT (21.0-31.0) Seconds PTT Ratio Sodium (136-145) mmol/L Potassium (3.5-5.1) mmol/L Chloride (98-107) mmol/L Carbon Dioxide (21-32) mmol/L Anion Gap (3-11) BUN (7-18) mg/dl Creatinine (0.6-1.4) mg/dl Est Cr Clr Drug Dosing ml/min Est GFR ( Amer) ml/min Est GFR (Non-Af Amer) ml/min BUN/Creatinine Ratio (10-20) Glucose (70-99) mg/dl POC Glucose 255 H (70-99) mg/dl Estimat Average Glucose mg/dl Hemoglobin A1c (4.5-5.6) % Lactate 1.6 (0.4-2.0) mmol/L Calcium (8.5-10.1) mg/dl Phosphorus (2.5-4.9) mg/dl Magnesium (1.8-2.4) mg/dl Total Bilirubin (0.2-1) mg/dl AST (15-37) U/L ALT (12-78) U/L Alkaline Phosphatase (45-117) U/L Troponin I (0-0.045) ng/ml Total Protein (6.4-8.2) gm/dl Albumin (3.4-5.0) gm/dl Globulin (2.5-4.0) gm/dl Albumin/Globulin Ratio (0.9-2) Procalcitonin (0-0.5) ng/ml Urine Color Urine Appearance (Clear) Urine pH (4.5-7.5) Ur Specific [place] (1.000-1.030) Urine Protein (Negative) Urine Glucose (UA) (Negative) Urine Ketones (Negative) Urine Blood (Negative) Urine Nitrite (Negative) Urine Bilirubin (Negative) Urine Urobilinogen (Negative) Ur Leukocyte Esterase (Negative) Nasal Screen MRSA (PCR) Negative (Negative) COVID-19 Eval Order SARS-CoV-2 (PCR) (Negative) 08/21/20 08/21/20 08/21/20 Range/Units 19:15 19:15 18:28 WBC (4.8-10.8) K/uL RBC (4.7-6.1) M/uL Hgb (14.0-18.0) g/dL Hct (42-52) % MCV (80-100) fL MCH (25-34) pg MCHC (32-36) g/dL RDW Std Deviation (36.4-46.3) fL RDW Coeff of Samuel (11.5-14.5) % Plt Count (130-400) K/uL MPV (7.4-10.4) fL Immature Gran % (Auto) % Neut % (Auto) % Lymph % (Auto) % Swisher % (Auto) % Eos % (Auto) % Baso % (Auto) % Neut # (Auto) (1.4-6.5) K/uL Lymph # (Auto) (1.2-3.4) K/uL Swisher # (Auto) (0.11-0.59) K/uL Eos # (Auto) (0-0.5) K/uL Baso # (Auto) (0-0.2) K/uL Immature Gran # (Auto) (0.00-0.02) K/uL PT (9.0-12.0) Seconds INR (0.9-1.1) APTT (21.0-31.0) Seconds PTT Ratio Sodium (136-145) mmol/L Potassium (3.5-5.1) mmol/L Chloride (98-107) mmol/L Carbon Dioxide (21-32) mmol/L Anion Gap (3-11) BUN (7-18) mg/dl Creatinine (0.6-1.4) mg/dl Est Cr Clr Drug Dosing ml/min Est GFR ( Amer) ml/min Est GFR (Non-Af Amer) ml/min BUN/Creatinine Ratio (10-20) Glucose (70-99) mg/dl POC Glucose (70-99) mg/dl Estimat Average Glucose mg/dl Hemoglobin A1c (4.5-5.6) % Lactate 2.1 H* (0.4-2.0) mmol/L Calcium (8.5-10.1) mg/dl Phosphorus (2.5-4.9) mg/dl Magnesium (1.8-2.4) mg/dl Total Bilirubin (0.2-1) mg/dl AST (15-37) U/L ALT (12-78) U/L Alkaline Phosphatase (45-117) U/L Troponin I (0-0.045) ng/ml Total Protein (6.4-8.2) gm/dl Albumin (3.4-5.0) gm/dl Globulin (2.5-4.0) gm/dl Albumin/Globulin Ratio (0.9-2) Procalcitonin (0-0.5) ng/ml Urine Color Urine Appearance (Clear) Urine pH (4.5-7.5) Ur Specific [place] (1.000-1.030) Urine Protein (Negative) Urine Glucose (UA) (Negative) Urine Ketones (Negative) Urine Blood (Negative) Urine Nitrite (Negative) Urine Bilirubin (Negative) Urine Urobilinogen (Negative) Ur Leukocyte Esterase (Negative) Nasal Screen MRSA (PCR) (Negative) COVID-19 Eval Order Covid19 at [facility] SARS-CoV-2 (PCR) NEGATIVE (Negative) 08/21/20 08/21/20 08/21/20 Range/Units 18:28 18:28 18:28 WBC 8.60 (4.8-10.8) K/uL RBC 5.07 (4.7-6.1) M/uL Hgb 16.7 (14.0-18.0) g/dL Hct 47.6 (42-52) % MCV 93.9 (80-100) fL MCH 32.9 (25-34) pg MCHC 35.1 (32-36) g/dL RDW Std Deviation 43.7 (36.4-46.3) fL RDW Coeff of Samuel 12.8 (11.5-14.5) % Plt Count 155 (130-400) K/uL MPV 10.0 (7.4-10.4) fL Immature Gran % (Auto) 0.2 % Neut % (Auto) 88.8 % Lymph % (Auto) 6.4 % Swisher % (Auto) 4.0 % Eos % (Auto) 0.6 % Baso % (Auto) 0.0 % Neut # (Auto) 7.64 H (1.4-6.5) K/uL Lymph # (Auto) 0.55 L (1.2-3.4) K/uL Swisher # (Auto) 0.34 (0.11-0.59) K/uL Eos # (Auto) 0.05 (0-0.5) K/uL Baso # (Auto) 0.00 (0-0.2) K/uL Immature Gran # (Auto) 0.02 (0.00-0.02) K/uL PT 11.0 (9.0-12.0) Seconds INR 1.1 (0.9-1.1) APTT 22.4 (21.0-31.0) Seconds PTT Ratio 0.9 Sodium (136-145) mmol/L Potassium (3.5-5.1) mmol/L Chloride (98-107) mmol/L Carbon Dioxide (21-32) mmol/L Anion Gap (3-11) BUN (7-18) mg/dl Creatinine (0.6-1.4) mg/dl Est Cr Clr Drug Dosing ml/min Est GFR ( Amer) ml/min Est GFR (Non-Af Amer) ml/min BUN/Creatinine Ratio (10-20) Glucose (70-99) mg/dl POC Glucose (70-99) mg/dl Estimat Average Glucose mg/dl Hemoglobin A1c (4.5-5.6) % Lactate (0.4-2.0) mmol/L Calcium (8.5-10.1) mg/dl Phosphorus (2.5-4.9) mg/dl Magnesium (1.8-2.4) mg/dl Total Bilirubin (0.2-1) mg/dl AST (15-37) U/L ALT (12-78) U/L Alkaline Phosphatase (45-117) U/L Troponin I (0-0.045) ng/ml Total Protein (6.4-8.2) gm/dl Albumin (3.4-5.0) gm/dl Globulin (2.5-4.0) gm/dl Albumin/Globulin Ratio (0.9-2) Procalcitonin 0.85 H (0-0.5) ng/ml Urine Color Urine Appearance (Clear) Urine pH (4.5-7.5) Ur Specific [place] (1.000-1.030) Urine Protein (Negative) Urine Glucose (UA) (Negative) Urine Ketones (Negative) Urine Blood (Negative) Urine Nitrite (Negative) Urine Bilirubin (Negative) Urine Urobilinogen (Negative) Ur Leukocyte Esterase (Negative) Nasal Screen MRSA (PCR) (Negative) COVID-19 Eval Order SARS-CoV-2 (PCR) (Negative) 08/21/20 Range/Units 18:28 WBC (4.8-10.8) K/uL RBC (4.7-6.1) M/uL Hgb (14.0-18.0) g/dL Hct (42-52) % MCV (80-100) fL MCH (25-34) pg MCHC (32-36) g/dL RDW Std Deviation (36.4-46.3) fL RDW Coeff of Samuel (11.5-14.5) % Plt Count (130-400) K/uL MPV (7.4-10.4) fL Immature Gran % (Auto) % Neut % (Auto) % Lymph % (Auto) % Swisher % (Auto) % Eos % (Auto) % Baso % (Auto) % Neut # (Auto) (1.4-6.5) K/uL Lymph # (Auto) (1.2-3.4) K/uL Swisher # (Auto) (0.11-0.59) K/uL Eos # (Auto) (0-0.5) K/uL Baso # (Auto) (0-0.2) K/uL Immature Gran # (Auto) (0.00-0.02) K/uL PT (9.0-12.0) Seconds INR (0.9-1.1) APTT (21.0-31.0) Seconds PTT Ratio Sodium 138 (136-145) mmol/L Potassium 3.9 (3.5-5.1) mmol/L Chloride 109 H (98-107) mmol/L Carbon Dioxide 20 L (21-32) mmol/L Anion Gap 9.0 (3-11) BUN 14 (7-18) mg/dl Creatinine 1.34 (0.6-1.4) mg/dl Est Cr Clr Drug Dosing 72.6 ml/min Est GFR ( Amer) 65.3 ml/min Est GFR (Non-Af Amer) 56.4 ml/min BUN/Creatinine Ratio 10.1 (10-20) Glucose 214 H (70-99) mg/dl POC Glucose (70-99) mg/dl Estimat Average Glucose mg/dl Hemoglobin A1c (4.5-5.6) % Lactate (0.4-2.0) mmol/L Calcium 9.1 (8.5-10.1) mg/dl Phosphorus (2.5-4.9) mg/dl Magnesium 1.9 (1.8-2.4) mg/dl Total Bilirubin 1.3 H (0.2-1) mg/dl AST 39 H (15-37) U/L ALT 47 (12-78) U/L Alkaline Phosphatase 106 (45-117) U/L Troponin I < 0.015 (0-0.045) ng/ml Total Protein 7.1 (6.4-8.2) gm/dl Albumin 3.4 (3.4-5.0) gm/dl Globulin 3.7 (2.5-4.0) gm/dl Albumin/Globulin Ratio 0.9 (0.9-2) Procalcitonin (0-0.5) ng/ml Urine Color Urine Appearance (Clear) Urine pH (4.5-7.5) Ur Specific [place] (1.000-1.030) Urine Protein (Negative) Urine Glucose (UA) (Negative) Urine Ketones (Negative) Urine Blood (Negative) Urine Nitrite (Negative) Urine Bilirubin (Negative) Urine Urobilinogen (Negative) Ur Leukocyte Esterase (Negative) Nasal Screen MRSA (PCR) (Negative) COVID-19 Eval Order SARS-CoV-2 (PCR) (Negative) Diagnostic Findings CT chest personally reviewed - no abscess seen, changes are c/w cellulitis US reviewed - 2.5 cm area - phlegmon vs abscess (1) Cellulitis Site of cellulitis: unspecified site Qualified Code(s): L03.90 - Cellulitis, unspecified
--- NOTE | 2020-08-22 11:09 | Surgery Consultation ---
Date of Consultation August 22, 2020 History of Present Illness Attending Physician: Margot Fitzpatrick MD Allergies Allergy/AdvReac Type Severity Reaction Status Date / Time clindamycin Allergy Rash Verified 08/21/20 19:53 Pork/Porcine Containing Allergy Unknown Verified 08/21/20 19:53 Products sulfamethoxazole Allergy Rash Verified 08/21/20 19:53 [From Bactrim] trimethoprim [From Bactrim] Allergy Rash Verified 08/21/20 19:53 sodium chloride AdvReac Unknown Verified 08/21/20 19:53 [From [place] Nasal] Home Medications Medication Instructions Recorded Confirmed Type aspirin [Aspir-Low] 81 mg PO DAILY 08/21/20 08/21/20 History atorvastatin 20 mg PO DAILY 08/21/20 08/21/20 History brimonidine 1 drp OPB TID 08/21/20 08/21/20 History capsaicin 1 applic TOPICAL BID 08/21/20 08/21/20 History ceftriaxone 1 g IV DAILY 08/21/20 08/21/20 History cetirizine 10 mg PO DAILY 08/21/20 08/21/20 History diphenhydramine HCl 50 mg PO TID 08/21/20 08/21/20 History dorzolamide 1 drp OPB TID 08/21/20 08/21/20 History ibuprofen 600 mg PO TID PRN 08/21/20 08/21/20 History insulin glargine [Semglee U-100 60 unit SUBCUT DAILY 08/21/20 08/21/20 History Insulin] latanoprost 1 drp OPB HS 08/21/20 08/21/20 History lisinopril 5 mg PO DAILY 08/21/20 08/21/20 History metformin 500 mg PO BID 08/21/20 08/21/20 History methylprednisolone sodium succ 125 mg IM DAILY 08/21/20 08/21/20 History [Solu-Medrol] timolol 1 drp OPB QAM 08/21/20 08/21/20 History Patient History Social History Smoking Status: Former smoker Smoking End Date: 1 and a half years ago; Hx Alcohol Use: No Hx Substance Use: No Preferred Language: Polish Communication Ability: Effective City Distribution Clerk Required: No Beliefs That Will Affect Care: Restorationism Restorationism Beliefs: Mormonism Current Living Situation: Other Current Living Situation Comment: [facility] Other Information That Helps Us Care for You: No Feels Safe at Home: Yes Safety Concerns: Feels Safe At This Time Assistive Devices: Glasses Results & Data ([facility]) Vital Signs (Past 12 Hours) Vital Signs Temp Pulse Resp BP Pulse Ox 08/22/20 07:53 36.9 C 90 16 121/64 95 08/21/20 23:51 36.6 C 100 H 16 146/74 H 95 08/21/20 23:01 36.8 C 102 H 20 117/59 L 96
--- NOTE | 2020-08-22 11:57 | Hospitalist Progress Note ---
Date of Service August 22, 2020 Assessment & Plan (1) Cellulitis: Benito Goel is a 64-year-old male with past medical history significant for hypertension, diabetes, hyperlipidemia who presents for concerns of lump on chest over the last week. Small abscess spontaneously ruptured at custodial and was on Bactrim and clinda but had allergic reaction. Then was on IV ceftriaxone Was also having lower lip swelling, rash on body and more localized rash around right pectoralis region as a reaction to tape adhesive With fever, tachycardia, elevated lactate, procal + Was given IVFs and IV Vanco here -Soft tissue ultrasound of chest wall demonstrating thickening with increased echogenicity within the subcu fat favoring cellulitis as well as a small pocket of phlegmon vs residual abscess -CT chest without contrast demonstrating fat stranding without visualization of fluid collection or abscess APpreciate Surgery consult-no I&D needed right now Lactate initially elevated in ED with subsequent downtrend -Continue vancomycin coverage alone for now Follow CBC, BMP, Procal (2) Sepsis: as above, secondary to cellulitis/abscess and was POA (3) Drug eruption: secondary to clinda vs Bactrim as outpt as well as reaction to tape adhesive -remove residual tape adhesive still on skin -add on prednisone 50mg po daily continue Zyrtec restart home benadryl of note, he was given IM SOlu Medrol at the custodial which may be why he has a leukocytosis today start topical hydrocortisone to rash no evidence of angioedema or anaphylaxis (4) HTN (hypertension): stable continue home lisinopril (5) HLD (hyperlipidemia): continue home statin, ASA (6) Diabetes: with significant hyperglycemia here A1C severely uncontrolled at 11.3% Restart Home Lantus and will need extra dosing likely later as starting prednisone, but will monitor tighten down Novolog SSI -hold home metformin (7) Pulmonary nodule: noted on CT chest here f/u as outpt with repeat imaging (8) Chronic prostatitis: noted, sees Urology no acute issues (9) Hepatitis C: noted in history, unclear if has been treated (10) Glaucoma: restart home eye drops (11) DVT prophylaxis: Will add on Lovenox Dispo-continued stay, eventually back to custodial Admission and Anticipated Discharge Date Admission Date: August 21, 2020 Subjective Pt continues to c/o itching and rash all over his body that started a couple of days ago after being treated with po abx at the custodial. He also reports after an adhesive dressing was placed over the draining abscess on his chest wall, he developed significant itching and rash at that site. Denies CP/SOB, no abd pain or diarrhea. Review of Systems Review of Systems: All systems reviewed & are unremarkable except as noted in HPI & below Physical Exam Constitutional: WD/WN, vitals as above Eyes: + anicteric sclerae ENMT: external ear and nose normal, oropharynx normal Neck: trachea midline, no thyromegaly Respiratory: normal respiratory effort, lungs clear to auscultation Cardiovascular: RRR, no murmur, no edema Chest (Breasts): Chest: + abnormal inspection of chest (rt pectoralis region with indurated,darkened skin,small fluctuence central) Gastrointestinal (Abdomen): normal bowel sounds, soft, nontender, no hepatosplenomegaly Musculoskeletal: Extremities: extremities normal to inspection; no cyanosis and no clubbing Skin: Right pectoralis region as above with crusted demarcated rash in rectangular pattern around right pec Arms, abdomen, legs with scattered macular, erythematous rash no drainage from central fluctuance Neurologic: moves all extremities and awake; no focal motor deficits Psychiatric: A+Ox3, euthymic affect Lymphatic: no lymphedema Results & Data Results & Data ([facility]) Vital Signs (Past 12 Hours) Vital Signs Temp Pulse Resp BP Pulse Ox 08/22/20 07:53 36.9 C 90 16 121/64 95 Laboratory Results 08/22/20 08/22/20 08/22/20 Range/Units Unknown 08:17 06:55 WBC (4.8-10.8) K/uL RBC (4.7-6.1) M/uL Hgb (14.0-18.0) g/dL Hct (42-52) % MCV (80-100) fL MCH (25-34) pg MCHC (32-36) g/dL RDW Std Deviation (36.4-46.3) fL RDW Coeff of Samuel (11.5-14.5) % Plt Count (130-400) K/uL MPV (7.4-10.4) fL Immature Gran % (Auto) % Neut % (Auto) % Lymph % (Auto) % [place] % (Auto) % Eos % (Auto) % Baso % (Auto) % Neut # (Auto) (1.4-6.5) K/uL Lymph # (Auto) (1.2-3.4) K/uL [place] # (Auto) (0.11-0.59) K/uL Eos # (Auto) (0-0.5) K/uL Baso # (Auto) (0-0.2) K/uL Immature Gran # (Auto) (0.00-0.02) K/uL PT (9.0-12.0) Seconds INR (0.9-1.1) APTT (21.0-31.0) Seconds PTT Ratio Sodium (136-145) mmol/L Potassium (3.5-5.1) mmol/L Chloride (98-107) mmol/L Carbon Dioxide (21-32) mmol/L Anion Gap (3-11) BUN (7-18) mg/dl Creatinine (0.6-1.4) mg/dl Est Cr Clr Drug Dosing ml/min Est GFR ( Amer) ml/min Est GFR (Non-Af Amer) ml/min BUN/Creatinine Ratio (10-20) Glucose (70-99) mg/dl POC Glucose 286 H (70-99) mg/dl Estimat Average Glucose mg/dl Hemoglobin A1c (4.5-5.6) % Lactate (0.4-2.0) mmol/L Calcium (8.5-10.1) mg/dl Phosphorus (2.5-4.9) mg/dl Magnesium (1.8-2.4) mg/dl Total Bilirubin (0.2-1) mg/dl AST (15-37) U/L ALT (12-78) U/L Alkaline Phosphatase (45-117) U/L Troponin I (0-0.045) ng/ml Total Protein (6.4-8.2) gm/dl Albumin (3.4-5.0) gm/dl Globulin (2.5-4.0) gm/dl Albumin/Globulin Ratio (0.9-2) Procalcitonin 3.66 H (0-0.5) ng/ml Urine Color Yellow Urine Appearance Clear (Clear) Urine pH 5.0 (4.5-7.5) Ur Specific [place] 1.024 (1.000-1.030) Urine Protein Negative (Negative) Urine Glucose (UA) 3+ H (Negative) Urine Ketones 2+ H (Negative) Urine Blood Negative (Negative) Urine Nitrite Negative (Negative) Urine Bilirubin Negative (Negative) Urine Urobilinogen Negative (Negative) Ur Leukocyte Esterase Negative (Negative) Nasal Screen MRSA (PCR) (Negative) COVID-19 Eval Order SARS-CoV-2 (PCR) (Negative) 08/22/20 08/22/20 08/22/20 Range/Units 06:55 06:55 06:55 WBC 11.42 H (4.8-10.8) K/uL RBC 4.43 L (4.7-6.1) M/uL Hgb 14.4 (14.0-18.0) g/dL Hct 41.4 L (42-52) % MCV 93.5 (80-100) fL MCH 32.5 (25-34) pg MCHC 34.8 (32-36) g/dL RDW Std Deviation 42.9 (36.4-46.3) fL RDW Coeff of Samuel 12.6 (11.5-14.5) % Plt Count 136 (130-400) K/uL MPV 9.9 (7.4-10.4) fL Immature Gran % (Auto) 0.1 % Neut % (Auto) 89.4 % Lymph % (Auto) 8.1 % [place] % (Auto) 2.2 % Eos % (Auto) 0.2 % Baso % (Auto) 0.0 % Neut # (Auto) 10.22 H (1.4-6.5) K/uL Lymph # (Auto) 0.92 L (1.2-3.4) K/uL [place] # (Auto) 0.25 (0.11-0.59) K/uL Eos # (Auto) 0.02 (0-0.5) K/uL Baso # (Auto) 0.00 (0-0.2) K/uL Immature Gran # (Auto) 0.01 (0.00-0.02) K/uL PT (9.0-12.0) Seconds INR (0.9-1.1) APTT (21.0-31.0) Seconds PTT Ratio Sodium 137 (136-145) mmol/L Potassium 4.1 (3.5-5.1) mmol/L Chloride 110 H (98-107) mmol/L Carbon Dioxide 19 L (21-32) mmol/L Anion Gap 8.0 (3-11) BUN 16 (7-18) mg/dl Creatinine 1.01 (0.6-1.4) mg/dl Est Cr Clr Drug Dosing 96.3 ml/min Est GFR ( Amer) 92.0 ml/min Est GFR (Non-Af Amer) 79.3 ml/min BUN/Creatinine Ratio 15.4 (10-20) Glucose 278 H (70-99) mg/dl POC Glucose (70-99) mg/dl Estimat Average Glucose 286 mg/dl Hemoglobin A1c 11.6 H (4.5-5.6) % Lactate (0.4-2.0) mmol/L Calcium 8.2 L (8.5-10.1) mg/dl Phosphorus 2.2 L (2.5-4.9) mg/dl Magnesium 2.1 (1.8-2.4) mg/dl Total Bilirubin (0.2-1) mg/dl AST (15-37) U/L ALT (12-78) U/L Alkaline Phosphatase (45-117) U/L Troponin I (0-0.045) ng/ml Total Protein (6.4-8.2) gm/dl Albumin (3.4-5.0) gm/dl Globulin (2.5-4.0) gm/dl Albumin/Globulin Ratio (0.9-2) Procalcitonin (0-0.5) ng/ml Urine Color Urine Appearance (Clear) Urine pH (4.5-7.5) Ur Specific [place] (1.000-1.030) Urine Protein (Negative) Urine Glucose (UA) (Negative) Urine Ketones (Negative) Urine Blood (Negative) Urine Nitrite (Negative) Urine Bilirubin (Negative) Urine Urobilinogen (Negative) Ur Leukocyte Esterase (Negative) Nasal Screen MRSA (PCR) (Negative) COVID-19 Eval Order SARS-CoV-2 (PCR) (Negative) 08/22/20 08/21/20 08/21/20 Range/Units 00:31 23:37 20:40 WBC (4.8-10.8) K/uL RBC (4.7-6.1) M/uL Hgb (14.0-18.0) g/dL Hct (42-52) % MCV (80-100) fL MCH (25-34) pg MCHC (32-36) g/dL RDW Std Deviation (36.4-46.3) fL RDW Coeff of Samuel (11.5-14.5) % Plt Count (130-400) K/uL MPV (7.4-10.4) fL Immature Gran % (Auto) % Neut % (Auto) % Lymph % (Auto) % [place] % (Auto) % Eos % (Auto) % Baso % (Auto) % Neut # (Auto) (1.4-6.5) K/uL Lymph # (Auto) (1.2-3.4) K/uL [place] # (Auto) (0.11-0.59) K/uL Eos # (Auto) (0-0.5) K/uL Baso # (Auto) (0-0.2) K/uL Immature Gran # (Auto) (0.00-0.02) K/uL PT (9.0-12.0) Seconds INR (0.9-1.1) APTT (21.0-31.0) Seconds PTT Ratio Sodium (136-145) mmol/L Potassium (3.5-5.1) mmol/L Chloride (98-107) mmol/L Carbon Dioxide (21-32) mmol/L Anion Gap (3-11) BUN (7-18) mg/dl Creatinine (0.6-1.4) mg/dl Est Cr Clr Drug Dosing ml/min Est GFR ( Amer) ml/min Est GFR (Non-Af Amer) ml/min BUN/Creatinine Ratio (10-20) Glucose (70-99) mg/dl POC Glucose 255 H (70-99) mg/dl Estimat Average Glucose mg/dl Hemoglobin A1c (4.5-5.6) % Lactate 1.6 (0.4-2.0) mmol/L Calcium (8.5-10.1) mg/dl Phosphorus (2.5-4.9) mg/dl Magnesium (1.8-2.4) mg/dl Total Bilirubin (0.2-1) mg/dl AST (15-37) U/L ALT (12-78) U/L Alkaline Phosphatase (45-117) U/L Troponin I (0-0.045) ng/ml Total Protein (6.4-8.2) gm/dl Albumin (3.4-5.0) gm/dl Globulin (2.5-4.0) gm/dl Albumin/Globulin Ratio (0.9-2) Procalcitonin (0-0.5) ng/ml Urine Color Urine Appearance (Clear) Urine pH (4.5-7.5) Ur Specific [place] (1.000-1.030) Urine Protein (Negative) Urine Glucose (UA) (Negative) Urine Ketones (Negative) Urine Blood (Negative) Urine Nitrite (Negative) Urine Bilirubin (Negative) Urine Urobilinogen (Negative) Ur Leukocyte Esterase (Negative) Nasal Screen MRSA (PCR) Negative (Negative) COVID-19 Eval Order SARS-CoV-2 (PCR) (Negative) 08/21/20 08/21/20 08/21/20 Range/Units 19:15 19:15 18:28 WBC (4.8-10.8) K/uL RBC (4.7-6.1) M/uL Hgb (14.0-18.0) g/dL Hct (42-52) % MCV (80-100) fL MCH (25-34) pg MCHC (32-36) g/dL RDW Std Deviation (36.4-46.3) fL RDW Coeff of Samuel (11.5-14.5) % Plt Count (130-400) K/uL MPV (7.4-10.4) fL Immature Gran % (Auto) % Neut % (Auto) % Lymph % (Auto) % [place] % (Auto) % Eos % (Auto) % Baso % (Auto) % Neut # (Auto) (1.4-6.5) K/uL Lymph # (Auto) (1.2-3.4) K/uL [place] # (Auto) (0.11-0.59) K/uL Eos # (Auto) (0-0.5) K/uL Baso # (Auto) (0-0.2) K/uL Immature Gran # (Auto) (0.00-0.02) K/uL PT (9.0-12.0) Seconds INR (0.9-1.1) APTT (21.0-31.0) Seconds PTT Ratio Sodium (136-145) mmol/L Potassium (3.5-5.1) mmol/L Chloride (98-107) mmol/L Carbon Dioxide (21-32) mmol/L Anion Gap (3-11) BUN (7-18) mg/dl Creatinine (0.6-1.4) mg/dl Est Cr Clr Drug Dosing ml/min Est GFR ( Amer) ml/min Est GFR (Non-Af Amer) ml/min BUN/Creatinine Ratio (10-20) Glucose (70-99) mg/dl POC Glucose (70-99) mg/dl Estimat Average Glucose mg/dl Hemoglobin A1c (4.5-5.6) % Lactate 2.1 H* (0.4-2.0) mmol/L Calcium (8.5-10.1) mg/dl Phosphorus (2.5-4.9) mg/dl Magnesium (1.8-2.4) mg/dl Total Bilirubin (0.2-1) mg/dl AST (15-37) U/L ALT (12-78) U/L Alkaline Phosphatase (45-117) U/L Troponin I (0-0.045) ng/ml Total Protein (6.4-8.2) gm/dl Albumin (3.4-5.0) gm/dl Globulin (2.5-4.0) gm/dl Albumin/Globulin Ratio (0.9-2) Procalcitonin (0-0.5) ng/ml Urine Color Urine Appearance (Clear) Urine pH (4.5-7.5) Ur Specific [place] (1.000-1.030) Urine Protein (Negative) Urine Glucose (UA) (Negative) Urine Ketones (Negative) Urine Blood (Negative) Urine Nitrite (Negative) Urine Bilirubin (Negative) Urine Urobilinogen (Negative) Ur Leukocyte Esterase (Negative) Nasal Screen MRSA (PCR) (Negative) COVID-19 Eval Order Covid19 at [facility] SARS-CoV-2 (PCR) NEGATIVE (Negative) 08/21/20 08/21/20 08/21/20 Range/Units 18:28 18:28 18:28 WBC 8.60 (4.8-10.8) K/uL RBC 5.07 (4.7-6.1) M/uL Hgb 16.7 (14.0-18.0) g/dL Hct 47.6 (42-52) % MCV 93.9 (80-100) fL MCH 32.9 (25-34) pg MCHC 35.1 (32-36) g/dL RDW Std Deviation 43.7 (36.4-46.3) fL RDW Coeff of Samuel 12.8 (11.5-14.5) % Plt Count 155 (130-400) K/uL MPV 10.0 (7.4-10.4) fL Immature Gran % (Auto) 0.2 % Neut % (Auto) 88.8 % Lymph % (Auto) 6.4 % [place] % (Auto) 4.0 % Eos % (Auto) 0.6 % Baso % (Auto) 0.0 % Neut # (Auto) 7.64 H (1.4-6.5) K/uL Lymph # (Auto) 0.55 L (1.2-3.4) K/uL [place] # (Auto) 0.34 (0.11-0.59) K/uL Eos # (Auto) 0.05 (0-0.5) K/uL Baso # (Auto) 0.00 (0-0.2) K/uL Immature Gran # (Auto) 0.02 (0.00-0.02) K/uL PT 11.0 (9.0-12.0) Seconds INR 1.1 (0.9-1.1) APTT 22.4 (21.0-31.0) Seconds PTT Ratio 0.9 Sodium (136-145) mmol/L Potassium (3.5-5.1) mmol/L Chloride (98-107) mmol/L Carbon Dioxide (21-32) mmol/L Anion Gap (3-11) BUN (7-18) mg/dl Creatinine (0.6-1.4) mg/dl Est Cr Clr Drug Dosing ml/min Est GFR ( Amer) ml/min Est GFR (Non-Af Amer) ml/min BUN/Creatinine Ratio (10-20) Glucose (70-99) mg/dl POC Glucose (70-99) mg/dl Estimat Average Glucose mg/dl Hemoglobin A1c (4.5-5.6) % Lactate (0.4-2.0) mmol/L Calcium (8.5-10.1) mg/dl Phosphorus (2.5-4.9) mg/dl Magnesium (1.8-2.4) mg/dl Total Bilirubin (0.2-1) mg/dl AST (15-37) U/L ALT (12-78) U/L Alkaline Phosphatase (45-117) U/L Troponin I (0-0.045) ng/ml Total Protein (6.4-8.2) gm/dl Albumin (3.4-5.0) gm/dl Globulin (2.5-4.0) gm/dl Albumin/Globulin Ratio (0.9-2) Procalcitonin 0.85 H (0-0.5) ng/ml Urine Color Urine Appearance (Clear) Urine pH (4.5-7.5) Ur Specific [place] (1.000-1.030) Urine Protein (Negative) Urine Glucose (UA) (Negative) Urine Ketones (Negative) Urine Blood (Negative) Urine Nitrite (Negative) Urine Bilirubin (Negative) Urine Urobilinogen (Negative) Ur Leukocyte Esterase (Negative) Nasal Screen MRSA (PCR) (Negative) COVID-19 Eval Order SARS-CoV-2 (PCR) (Negative) 08/21/20 Range/Units 18:28 WBC (4.8-10.8) K/uL RBC (4.7-6.1) M/uL Hgb (14.0-18.0) g/dL Hct (42-52) % MCV (80-100) fL MCH (25-34) pg MCHC (32-36) g/dL RDW Std Deviation (36.4-46.3) fL RDW Coeff of Samuel (11.5-14.5) % Plt Count (130-400) K/uL MPV (7.4-10.4) fL Immature Gran % (Auto) % Neut % (Auto) % Lymph % (Auto) % [place] % (Auto) % Eos % (Auto) % Baso % (Auto) % Neut # (Auto) (1.4-6.5) K/uL Lymph # (Auto) (1.2-3.4) K/uL [place] # (Auto) (0.11-0.59) K/uL Eos # (Auto) (0-0.5) K/uL Baso # (Auto) (0-0.2) K/uL Immature Gran # (Auto) (0.00-0.02) K/uL PT (9.0-12.0) Seconds INR (0.9-1.1) APTT (21.0-31.0) Seconds PTT Ratio Sodium 138 (136-145) mmol/L Potassium 3.9 (3.5-5.1) mmol/L Chloride 109 H (98-107) mmol/L Carbon Dioxide 20 L (21-32) mmol/L Anion Gap 9.0 (3-11) BUN 14 (7-18) mg/dl Creatinine 1.34 (0.6-1.4) mg/dl Est Cr Clr Drug Dosing 72.6 ml/min Est GFR ( Amer) 65.3 ml/min Est GFR (Non-Af Amer) 56.4 ml/min BUN/Creatinine Ratio 10.1 (10-20) Glucose 214 H (70-99) mg/dl POC Glucose (70-99) mg/dl Estimat Average Glucose mg/dl Hemoglobin A1c (4.5-5.6) % Lactate (0.4-2.0) mmol/L Calcium 9.1 (8.5-10.1) mg/dl Phosphorus (2.5-4.9) mg/dl Magnesium 1.9 (1.8-2.4) mg/dl Total Bilirubin 1.3 H (0.2-1) mg/dl AST 39 H (15-37) U/L ALT 47 (12-78) U/L Alkaline Phosphatase 106 (45-117) U/L Troponin I < 0.015 (0-0.045) ng/ml Total Protein 7.1 (6.4-8.2) gm/dl Albumin 3.4 (3.4-5.0) gm/dl Globulin 3.7 (2.5-4.0) gm/dl Albumin/Globulin Ratio 0.9 (0.9-2) Procalcitonin (0-0.5) ng/ml Urine Color Urine Appearance (Clear) Urine pH (4.5-7.5) Ur Specific [place] (1.000-1.030) Urine Protein (Negative) Urine Glucose (UA) (Negative) Urine Ketones (Negative) Urine Blood (Negative) Urine Nitrite (Negative) Urine Bilirubin (Negative) Urine Urobilinogen (Negative) Ur Leukocyte Esterase (Negative) Nasal Screen MRSA (PCR) (Negative) COVID-19 Eval Order SARS-CoV-2 (PCR) (Negative) PG Care Time/CCT Total # of Minutes Spent Total Time Spent with Patient: Total time spent is greater than 50% in coordination of care (as documented) at patient's floor/unit and/or counseling patient: Coding Level of Care Code 64860 Subseq Hosp Care Lvl 3 Diagnoses Cellulitis L03.90 Site of cellulitis: unspecified site Sepsis A41.9 Sepsis acute organ dysfunction status: unspecified Sepsis type: sepsis due to unspecified organism Drug eruption L27.0 HTN (hypertension) I10 HLD (hyperlipidemia) E78.5 Diabetes E11.9 Pulmonary nodule R91.1 Chronic prostatitis N41.1 Hepatitis C B19.20 Glaucoma H40.9 DVT prophylaxis Z29.9 (1) Cellulitis Site of cellulitis: unspecified site Qualified Code(s): L03.90 - Cellulitis, unspecified (2) Sepsis Sepsis acute organ dysfunction status: unspecified Sepsis type: sepsis due to unspecified organism Qualified Code(s): A41.9 - Sepsis, unspecified organism
[2020-08-22] MEDS: DORZOLAMIDE HCL 2% OPH SOLN 10 ML BTL OPB SCH ×2 (13:53→20:00)
[2020-08-22] MEDS: HYDROCORTISONE 1% CRM 30 GM TUBE EXT SCH ×2 (13:53→20:02)
[2020-08-22] MEDS: predniSONE 50 MG TAB PO SCH (13:53)
[2020-08-22] MEDS: ENOXAPARIN INJ 40 MG/0.4 ML SYR SQ SCH (13:53)
[2020-08-22] MEDS ORDERED: BRIMONIDINE TART 0.2% OP SOLN PER DROP CHARGE OPB SCH (14:00)
[2020-08-22] MEDS ORDERED: BRIMONIDINE TARTRATE 0.2% 5ML OPB SCH (14:30)
[2020-08-22] MEDS: BRIMONIDINE TARTRATE 0.2% 5ML OPB SCH (20:02)
[2020-08-22] MEDS: LATANOPROST 0.005% OP SOLN 2.5 ML BTL OPB SCH (23:12)
--- NOTE | 2020-08-23 00:03 | Electrocardiogram Report ---
Test Reason : Blood Pressure : / mmHG Vent. Rate : 123 BPM Atrial Rate : 123 BPM P-R Int : 142 ms QRS Dur : 072 ms QT Int : 270 ms P-R-T Axes : 053 -02 073 degrees QTc Int : 386 ms Sinus tachycardia Possible Left atrial enlargement Cannot rule out Anterior infarct , age undetermined Nonspecific T wave abnormality Abnormal ECG When compared with ECG of 11-JUL-2013 18:13, Vent. rate has increased BY 56 BPM Confirmed by Samy Rollins ([id number]) on 08/23/2020 12:02:39 AM Referred By: [facility] Confirmed By:Samy Rollins
--- NOTE | 2020-08-23 05:04 | Billing Data ---
Date of Service August 23, 2020 Coding Level of Care Code 14645 Initial Inpt Care Lvl 3
[2020-08-23] MEDS ORDERED: VANCOMYCIN TROUGH ONE (05:30)
[2020-08-23] MEDS: VANCOMYCIN HCL 1,500 MG in SODIUM CHLORIDE 0.9% 500 ML IV SCH ×2 (06:15→17:39)
[2020-08-23 07:04] LABS: BUN Creatinine Ratio 22.4 (10-20); Calcium 8.4 mg/dl (8.5-10.1); Creatinine Clr Calc Pharmacy 110.5 ml/min; Est GFR (African American) 106.7 ml/min; Est GFR (Non-African American) 92.1 ml/min
[2020-08-23 07:37] LABS: Basophils # (auto) 0.01 K/uL (0-0.2); Basophils % (auto) 0.1 %; Eosinophils # (auto) 0.09 K/uL (0-0.5); Eosinophils % (auto) 0.7 %; Hematocrit (blood only) 39.5 % (42-52); Hemoglobin 14.1 g/dL (14.0-18.0); Immature Granulocytes # (auto) 0.07 K/uL (0.00-0.02); Immature Granulocytes % (auto) 0.5 %; Lymphocytes # (auto) 1.22 K/uL (1.2-3.4); Lymphocytes % (auto) 8.8 %; Mean Corpuscular Volume 92.5 fL (80-100); Mean Platelet Volume 10.5 fL (7.4-10.4); Monocytes # (auto) 0.82 K/uL (0.11-0.59); Monocytes % (auto) 5.9 %; Neutrophils # (auto) 11.59 K/uL (1.4-6.5); Platelet Count 155 K/uL (130-400); RDW Coefficient of Variation 12.8 % (11.5-14.5); Red Blood Count 4.27 M/uL (4.7-6.1)
[2020-08-23 07:44] LABS: Mean Corpuscular Hgb Conc 35.7 g/dL (32-36)
--- NOTE | 2020-08-23 08:31 | Pharmacy Report ---
Pharmacy Abx Dose Short Note - Date of Service August 23, 2020 - Assessment & Plan Assessment 64 year old M receiving Vancomycin for treatment of chest wall cellulitis/possible abscess and pneumonia * PMHx significant for incarceration and T2DM * Imaging suggestive of pneumonia and cellulitis * Previously received Bactrim, Clindamycin and Ceftriaxone prior to admission * MRSA nasal swab negative. Blood cultures with no growth to date. * White count up slightly to 13.8k. PCT down to 2.87. Plan Vancomycin * Trough level of 11.3 mcg/mL is therapeutic * Continue dose of 1500 mg IV every 12 hours * Goal trough level: ~15 mcg/mL * Trough level ordered for 08/25/20 prior to the 0600 dose. Pharmacy will continue to follow and will adjust dose/frequency as necessary. Thank you.
[2020-08-23] MEDS: predniSONE 50 MG TAB PO SCH (09:26)
[2020-08-23] MEDS: ASPIRIN 81 MG ECTAB PO SCH (09:26)
[2020-08-23] MEDS: ATORVASTATIN 20 MG TAB PO SCH (09:26)
[2020-08-23] MEDS: CETIRIZINE HCL 10 MG TABLET PO SCH ×2 (09:27→20:52)
[2020-08-23] MEDS: lisinopril 5 MG TAB PO SCH (09:27)
[2020-08-23] MEDS: ENOXAPARIN INJ 40 MG/0.4 ML SYR SQ SCH (09:28)
[2020-08-23] MEDS: DORZOLAMIDE HCL 2% OPH SOLN 10 ML BTL OPB SCH ×3 (09:28→20:51)
[2020-08-23] MEDS: HYDROCORTISONE 1% CRM 30 GM TUBE EXT SCH ×2 (09:29→20:53)
[2020-08-23] MEDS: BRIMONIDINE TARTRATE 0.2% 5ML OPB SCH ×3 (09:29→21:06)
[2020-08-23] MEDS: INSULIN GLARGINE SOLOSTAR 100 UNITS/ML 3 ML PEN SQ SCH (09:33)
[2020-08-23] MEDS: INSULIN ASPART 100 UNITS/ML 3 ML PEN SC SCH ×4 (09:33→20:59)
--- NOTE | 2020-08-23 11:28 | Hospitalist Progress Note ---
Date of Service August 23, 2020 Assessment & Plan (1) Cellulitis: Benito Goel is a 64-year-old male with past medical history significant for hypertension, diabetes, hyperlipidemia who presents for concerns of lump on chest over the last week. Small abscess spontaneously ruptured at retirement and was on Bactrim and clinda but had allergic reaction. Then was on IV ceftriaxone Was also having lower lip swelling, rash on body and more localized rash around right pectoralis region as a reaction to tape adhesive With fever, tachycardia, elevated lactate, procal + on admission Was given IVFs and IV Vanco/Ceftriaxone here -Soft tissue ultrasound of chest wall demonstrating thickening with increased echogenicity within the subcu fat favoring cellulitis as well as a small pocket of phlegmon vs residual abscess -CT chest without contrast demonstrating fat stranding without visualization of fluid collection or abscess APpreciate Surgery consult-no I&D needed right now Lactate initially elevated in ED with subsequent downtrend Procal trending downward, WBC count up but now on prednisone for allergic reaction MRSA swab negative Abscess and cellulitis now much improved, with some chronic skin changes that will take time to resolve but erythema improving. Is afebrile now. BCxs no growth to date -Continue vancomycin coverage alone for now and plan to convert to po keflex and doxy on discharge to complete 7-10 day course Follow CBC, BMP, Procal in AM -follow BCXs (2) Sepsis: as above, secondary to cellulitis/abscess and was POA (3) Drug eruption: secondary to clinda vs Bactrim as outpt as well as reaction to tape adhesive With rash on all limbs and trunk that is maculopapular, erythematous, very itchy--> now improving with prednisone and Zyrtec, benadryl -removed residual tape adhesive still on skin -continue on prednisone 50mg po daily x 5 day course continue Zyrtec but increase to 10mg po bid for continued itching -continue benadryl of note, he was given IM SOlu Medrol at the retirement just prior to admission -continue topical hydrocortisone to rash no evidence of angioedema or anaphylaxis although there was report of lower lip swelling at prion prior to arrival (4) HTN (hypertension): stable continue home lisinopril (5) HLD (hyperlipidemia): continue home statin, ASA (6) Diabetes: with significant hyperglycemia here now improved with adding home Lantus back plus tightening Novolog A1C severely uncontrolled at 11.3% Continue Lantus 60 units -continue current Novolog and may need extra insulin with being on burst of prednisone, but will monitor -hold home metformin -unsure if has oversight of glucose and insulin administration at retirement but needs improvement in control (7) Glaucoma: continue home eye drops (8) Hepatitis C: noted in history, unclear if has been treated (9) Chronic prostatitis: noted, sees Urology no acute issues, making urine and getting it out (10) Pulmonary nodule: noted on CT chest here with 5 and 7mm right sided nodules f/u as outpt with repeat imaging CT Chest in 3 months (11) DVT prophylaxis: SQ Lovenox Dispo-continued stay, eventually back to retirement in 1-2 days if cellulitis continues to improve and allergic drug rash improving Admission and Anticipated Discharge Date Admission Date: August 21, 2020 Subjective Pt feeling better, still some itching all over, worse around 1800. No other issues. Is travis po, no N/V, is moving bowels and makin gurine. Review of Systems Review of Systems: All systems reviewed & are unremarkable except as noted in HPI & below Physical Exam Constitutional: WD/WN, vitals as above Eyes: + anicteric sclerae Neck: trachea midline, no thyromegaly Respiratory: normal respiratory effort, lungs clear to auscultation Cardiovascular: RRR, no murmur, no edema Chest (Breasts): Chest: + abnormal inspection of chest (rt pectoralis region w/ darkened skin,small fluctuence central all improved) Gastrointestinal (Abdomen): normal bowel sounds, soft, nontender, no hepatosplenomegaly Musculoskeletal: Extremities: extremities normal to inspection; no cyanosis and no clubbing Skin: maculopapular rash on arms, legs, abdomen all much less erythematous Neurologic: moves all extremities and awake; no focal motor deficits Psychiatric: A+Ox3, euthymic affect Lymphatic: no lymphedema Results & Data Results & Data ([facility]) Vital Signs (Past 12 Hours) Vital Signs Temp Pulse Resp BP Pulse Ox 08/23/20 07:58 36.7 C 72 16 120/60 96 Laboratory Results 08/23/20 08/23/20 08/23/20 Range/Units 08:28 07:14 06:08 WBC 13.80 H RBC 4.27 L Hgb 14.1 Hct 39.5 L MCV 92.5 MCH 33.0 MCHC 35.7 RDW Std Deviation 43.0 RDW Coeff of Samuel 12.8 Plt Count 155 MPV 10.5 H Immature Gran % (Auto) 0.5 Neut % (Auto) 84.0 Lymph % (Auto) 8.8 [place] % (Auto) 5.9 Eos % (Auto) 0.7 Baso % (Auto) 0.1 Neut # (Auto) 11.59 H Lymph # (Auto) 1.22 [place] # (Auto) 0.82 H Eos # (Auto) 0.09 Baso # (Auto) 0.01 Immature Gran # (Auto) 0.07 H Absolute Nucleated RBC Nucleated RBC % (auto) Neutrophils % (Manual) Band Neutrophils % Lymphocytes % (Manual) Prolymphocyte % Reactive Lymphs % (Man) Monocytes % (Manual) Eosinophils % (Manual) Basophils % (Manual) Metamyelocytes % (Man) Myelocytes % (Man) Promyelocytes % (Man) Blast Cells % (Manual) Plasma Cell % (Manual) Other Cells % Nucleated RBC % Neutrophils # (Manual) Band Neutrophils # Total Absolute Neuts Lymphocytes # (Manual) Prolymphocyte # Reactive Lymphs # Total Abs Lymphocytes Monocytes # (Manual) Eosinophils # (Manual) Basophils # (Manual) Metamyelocytes # (Man) Myelocytes # (Manual) Promyelocytes # (Man) Blast Cells # (Man) Plasma Cell # (Manual) Other Cells # Nucleated RBCs # (Man) Hypersegmented Neuts Hyposegmented Neuts Hypogranular Neuts Large Granular Lymphs # Lrg Granular Lymphs Hairy Cells Smudge Cells Toxic Granulation Toxic Vacuolation Dohle Bodies Alexandr Rods Platelet Estimate Hypogranular Platelets Clumped Platelets Giant Platelets Platelet Satelliting RBC Morphology Polychromasia Hypochromasia Poikilocytosis Basophilic Stippling Anisocytosis Microcytosis Macrocytosis Spherocytes Pappenheimer Bodies Sickle Cells Target Cells Tear Drop Cells Ovalocytes Stomatocytes Jordan-Greenbush Bodies Echinocytes Acanthocytes (Spur) Rouleaux RBC Agglutinates Schistocytes RBC Morph Comment Sezary Cell Sodium (136-145) mmol/L Potassium (3.5-5.1) mmol/L Chloride (98-107) mmol/L Carbon Dioxide (21-32) mmol/L Anion Gap (3-11) BUN (7-18) mg/dl Creatinine (0.6-1.4) mg/dl Est Cr Clr Drug Dosing ml/min Est GFR ( Amer) ml/min Est GFR (Non-Af Amer) ml/min BUN/Creatinine Ratio (10-20) Glucose (70-99) mg/dl POC Glucose 152 H (70-99) mg/dl Calcium (8.5-10.1) mg/dl Procalcitonin 2.87 H (0-0.5) ng/ml Vancomycin Trough (See Comment) mcg/ml 08/23/20 08/23/20 08/23/20 Range/Units 06:08 06:08 06:08 WBC Cancelled RBC Cancelled Hgb Cancelled Hct Cancelled MCV Cancelled MCH Cancelled MCHC Cancelled RDW Std Deviation Cancelled RDW Coeff of Samuel Cancelled Plt Count Cancelled MPV Cancelled Immature Gran % (Auto) Cancelled Neut % (Auto) Cancelled Lymph % (Auto) Cancelled [place] % (Auto) Cancelled Eos % (Auto) Cancelled Baso % (Auto) Cancelled Neut # (Auto) Cancelled Lymph # (Auto) Cancelled [place] # (Auto) Cancelled Eos # (Auto) Cancelled Baso # (Auto) Cancelled Immature Gran # (Auto) Cancelled Absolute Nucleated RBC Cancelled Nucleated RBC % (auto) Cancelled Neutrophils % (Manual) Cancelled Band Neutrophils % Cancelled Lymphocytes % (Manual) Cancelled Prolymphocyte % Cancelled Reactive Lymphs % (Man) Cancelled Monocytes % (Manual) Cancelled Eosinophils % (Manual) Cancelled Basophils % (Manual) Cancelled Metamyelocytes % (Man) Cancelled Myelocytes % (Man) Cancelled Promyelocytes % (Man) Cancelled Blast Cells % (Manual) Cancelled Plasma Cell % (Manual) Cancelled Other Cells % Cancelled Nucleated RBC % Cancelled Neutrophils # (Manual) Cancelled Band Neutrophils # Cancelled Total Absolute Neuts Cancelled Lymphocytes # (Manual) Cancelled Prolymphocyte # Cancelled Reactive Lymphs # Cancelled Total Abs Lymphocytes Cancelled Monocytes # (Manual) Cancelled Eosinophils # (Manual) Cancelled Basophils # (Manual) Cancelled Metamyelocytes # (Man) Cancelled Myelocytes # (Manual) Cancelled Promyelocytes # (Man) Cancelled Blast Cells # (Man) Cancelled Plasma Cell # (Manual) Cancelled Other Cells # Cancelled Nucleated RBCs # (Man) Cancelled Hypersegmented Neuts Cancelled Hyposegmented Neuts Cancelled Hypogranular Neuts Cancelled Large Granular Lymphs Cancelled # Lrg Granular Lymphs Cancelled Hairy Cells Cancelled Smudge Cells Cancelled Toxic Granulation Cancelled Toxic Vacuolation Cancelled Dohle Bodies Cancelled Alexandr Rods Cancelled Platelet Estimate Cancelled Hypogranular Platelets Cancelled Clumped Platelets Cancelled Giant Platelets Cancelled Platelet Satelliting Cancelled RBC Morphology Cancelled Polychromasia Cancelled Hypochromasia Cancelled Poikilocytosis Cancelled Basophilic Stippling Cancelled Anisocytosis Cancelled Microcytosis Cancelled Macrocytosis Cancelled Spherocytes Cancelled Pappenheimer Bodies Cancelled Sickle Cells Cancelled Target Cells Cancelled Tear Drop Cells Cancelled Ovalocytes Cancelled Stomatocytes Cancelled [place] Bodies Cancelled Echinocytes Cancelled Acanthocytes (Spur) Cancelled Rouleaux Cancelled RBC Agglutinates Cancelled Schistocytes Cancelled RBC Morph Comment Cancelled Sezary Cell Cancelled Sodium 142 (136-145) mmol/L Potassium 4.0 (3.5-5.1) mmol/L Chloride 114 H (98-107) mmol/L Carbon Dioxide 21 (21-32) mmol/L Anion Gap 7.0 (3-11) BUN 20 H (7-18) mg/dl Creatinine 0.88 (0.6-1.4) mg/dl Est Cr Clr Drug Dosing 110.5 ml/min Est GFR ( Amer) 106.7 ml/min Est GFR (Non-Af Amer) 92.1 ml/min BUN/Creatinine Ratio 22.4 H (10-20) Glucose 171 H (70-99) mg/dl POC Glucose (70-99) mg/dl Calcium 8.4 L (8.5-10.1) mg/dl Procalcitonin (0-0.5) ng/ml Vancomycin Trough 11.3 (See Comment) mcg/ml 08/23/20 08/22/20 08/22/20 Range/Units 00:08 20:33 17:22 WBC RBC Hgb Hct MCV MCH MCHC RDW Std Deviation RDW Coeff of Samuel Plt Count MPV Immature Gran % (Auto) Neut % (Auto) Lymph % (Auto) [place] % (Auto) Eos % (Auto) Baso % (Auto) Neut # (Auto) Lymph # (Auto) [place] # (Auto) Eos # (Auto) Baso # (Auto) Immature Gran # (Auto) Absolute Nucleated RBC Nucleated RBC % (auto) Neutrophils % (Manual) Band Neutrophils % Lymphocytes % (Manual) Prolymphocyte % Reactive Lymphs % (Man) Monocytes % (Manual) Eosinophils % (Manual) Basophils % (Manual) Metamyelocytes % (Man) Myelocytes % (Man) Promyelocytes % (Man) Blast Cells % (Manual) Plasma Cell % (Manual) Other Cells % Nucleated RBC % Neutrophils # (Manual) Band Neutrophils # Total Absolute Neuts Lymphocytes # (Manual) Prolymphocyte # Reactive Lymphs # Total Abs Lymphocytes Monocytes # (Manual) Eosinophils # (Manual) Basophils # (Manual) Metamyelocytes # (Man) Myelocytes # (Manual) Promyelocytes # (Man) Blast Cells # (Man) Plasma Cell # (Manual) Other Cells # Nucleated RBCs # (Man) Hypersegmented Neuts Hyposegmented Neuts Hypogranular Neuts Large Granular Lymphs # Lrg Granular Lymphs Hairy Cells Smudge Cells Toxic Granulation Toxic Vacuolation Dohle Bodies Alexandr Rods Platelet Estimate Hypogranular Platelets Clumped Platelets Giant Platelets Platelet Satelliting RBC Morphology Polychromasia Hypochromasia Poikilocytosis Basophilic Stippling Anisocytosis Microcytosis Macrocytosis Spherocytes Pappenheimer Bodies Sickle Cells Target Cells Tear Drop Cells Ovalocytes Stomatocytes [place] Bodies Echinocytes Acanthocytes (Spur) Rouleaux RBC Agglutinates Schistocytes RBC Morph Comment Sezary Cell Sodium (136-145) mmol/L Potassium (3.5-5.1) mmol/L Chloride (98-107) mmol/L Carbon Dioxide (21-32) mmol/L Anion Gap (3-11) BUN (7-18) mg/dl Creatinine (0.6-1.4) mg/dl Est Cr Clr Drug Dosing ml/min Est GFR ( Amer) ml/min Est GFR (Non-Af Amer) ml/min BUN/Creatinine Ratio (10-20) Glucose (70-99) mg/dl POC Glucose 244 H 300 H 213 H (70-99) mg/dl Calcium (8.5-10.1) mg/dl Procalcitonin (0-0.5) ng/ml Vancomycin Trough (See Comment) mcg/ml 08/22/20 Range/Units 12:32 WBC RBC Hgb Hct MCV MCH MCHC RDW Std Deviation RDW Coeff of Samuel Plt Count MPV Immature Gran % (Auto) Neut % (Auto) Lymph % (Auto) [place] % (Auto) Eos % (Auto) Baso % (Auto) Neut # (Auto) Lymph # (Auto) [place] # (Auto) Eos # (Auto) Baso # (Auto) Immature Gran # (Auto) Absolute Nucleated RBC Nucleated RBC % (auto) Neutrophils % (Manual) Band Neutrophils % Lymphocytes % (Manual) Prolymphocyte % Reactive Lymphs % (Man) Monocytes % (Manual) Eosinophils % (Manual) Basophils % (Manual) Metamyelocytes % (Man) Myelocytes % (Man) Promyelocytes % (Man) Blast Cells % (Manual) Plasma Cell % (Manual) Other Cells % Nucleated RBC % Neutrophils # (Manual) Band Neutrophils # Total Absolute Neuts Lymphocytes # (Manual) Prolymphocyte # Reactive Lymphs # Total Abs Lymphocytes Monocytes # (Manual) Eosinophils # (Manual) Basophils # (Manual) Metamyelocytes # (Man) Myelocytes # (Manual) Promyelocytes # (Man) Blast Cells # (Man) Plasma Cell # (Manual) Other Cells # Nucleated RBCs # (Man) Hypersegmented Neuts Hyposegmented Neuts Hypogranular Neuts Large Granular Lymphs # Lrg Granular Lymphs Hairy Cells Smudge Cells Toxic Granulation Toxic Vacuolation Dohle Bodies Alexandr Rods Platelet Estimate Hypogranular Platelets Clumped Platelets Giant Platelets Platelet Satelliting RBC Morphology Polychromasia Hypochromasia Poikilocytosis Basophilic Stippling Anisocytosis Microcytosis Macrocytosis Spherocytes Pappenheimer Bodies Sickle Cells Target Cells Tear Drop Cells Ovalocytes Stomatocytes [place] Bodies Echinocytes Acanthocytes (Spur) Rouleaux RBC Agglutinates Schistocytes RBC Morph Comment Sezary Cell Sodium (136-145) mmol/L Potassium (3.5-5.1) mmol/L Chloride (98-107) mmol/L Carbon Dioxide (21-32) mmol/L Anion Gap (3-11) BUN (7-18) mg/dl Creatinine (0.6-1.4) mg/dl Est Cr Clr Drug Dosing ml/min Est GFR ( Amer) ml/min Est GFR (Non-Af Amer) ml/min BUN/Creatinine Ratio (10-20) Glucose (70-99) mg/dl POC Glucose 228 H (70-99) mg/dl Calcium (8.5-10.1) mg/dl Procalcitonin (0-0.5) ng/ml Vancomycin Trough (See Comment) mcg/ml PG Care Time/CCT Total # of Minutes Spent Total Time Spent with Patient: Total time spent is greater than 50% in coordination of care (as documented) at patient's floor/unit and/or counseling patient: Coding Level of Care Code 33484 Subseq Hosp Care Lvl 2 Diagnoses Cellulitis L03.90 Site of cellulitis: unspecified site Sepsis A41.9 Sepsis acute organ dysfunction status: unspecified Sepsis type: sepsis due to unspecified organism Drug eruption L27.0 HTN (hypertension) I10 HLD (hyperlipidemia) E78.5 Diabetes E11.9 Glaucoma H40.9 Hepatitis C B19.20 Chronic prostatitis N41.1 Pulmonary nodule R91.1 DVT prophylaxis Z29.9 (1) Cellulitis Site of cellulitis: unspecified site Qualified Code(s): L03.90 - Cellulitis, unspecified (2) Sepsis Sepsis acute organ dysfunction status: unspecified Sepsis type: sepsis due to unspecified organism Qualified Code(s): A41.9 - Sepsis, unspecified organism
[2020-08-23] MEDS: LATANOPROST 0.005% OP SOLN 2.5 ML BTL OPB SCH (20:52)
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
[2020-08-24] MEDS ORDERED: ACETAMINOPHEN 500 MG TAB PO STA (03:49)
[2020-08-24 04:39] LABS: Basophils # (auto) 0.01 K/uL (0-0.2); Basophils % (auto) 0.1 %; Eosinophils # (auto) 0.11 K/uL (0-0.5); Eosinophils % (auto) 1.1 %; Hematocrit (blood only) 37.3 % (42-52); Hemoglobin 13.1 g/dL (14.0-18.0); Immature Granulocytes # (auto) 0.03 K/uL (0.00-0.02); Immature Granulocytes % (auto) 0.3 %; Lymphocytes # (auto) 1.59 K/uL (1.2-3.4); Lymphocytes % (auto) 15.5 %; Mean Corpuscular Hemoglobin 32.8 pg (25-34); Mean Corpuscular Volume 93.3 fL (80-100); Mean Platelet Volume 9.8 fL (7.4-10.4); Monocytes % (auto) 6.8 %; Neutrophils # (auto) 7.81 K/uL (1.4-6.5); Neutrophils % (auto) 76.2 %; Platelet Count 138 K/uL (130-400); RDW Coefficient of Variation 12.7 % (11.5-14.5); RDW Standard Deviation 43.8 fL (36.4-46.3); White Blood Count 10.25 K/uL (4.8-10.8)
[2020-08-24 04:48] LABS: Mean Corpuscular Hgb Conc 35.1 g/dL (32-36)
[2020-08-24 05:10] LABS: Alanine Aminotransferase 41 U/L (12-78); Albumin Globulin Ratio 0.9 (0.9-2); Albumin Level 2.8 gm/dl (3.4-5.0); Alkaline Phosphatase 74 U/L (45-117); Aspartate Aminotransferase 26 U/L (15-37); BUN Creatinine Ratio 19.7 (10-20); Bilirubin,Total 0.6 mg/dl (0.2-1); Blood Urea Nitrogen 15 mg/dl (7-18); Calcium 7.8 mg/dl (8.5-10.1); Carbon Dioxide 24 mmol/L (21-32); Chloride 114 mmol/L (98-107); Creatinine Clr Calc Pharmacy 126.3 ml/min; Est GFR (African American) 112.7 ml/min; Est GFR (Non-African American) 97.3 ml/min; Globulin 3.1 gm/dl (2.5-4.0); Glucose 154 mg/dl (70-99); Magnesium 2.5 mg/dl (1.8-2.4); Potassium 3.3 mmol/L (3.5-5.1); Sodium 144 mmol/L (136-145); Total Protein 5.9 gm/dl (6.4-8.2); Troponin I < 0.015 ng/ml (0-0.045)
[2020-08-24] MEDS: VANCOMYCIN HCL 1,500 MG in SODIUM CHLORIDE 0.9% 500 ML IV SCH ×2 (06:18→17:43)
[2020-08-24] MEDS: ATORVASTATIN 20 MG TAB PO SCH (09:11)
[2020-08-24] MEDS: ASPIRIN 81 MG ECTAB PO SCH (09:11)
[2020-08-24] MEDS: lisinopril 5 MG TAB PO SCH (09:11)
[2020-08-24] MEDS: predniSONE 50 MG TAB PO SCH (09:12)
[2020-08-24] MEDS: DORZOLAMIDE HCL 2% OPH SOLN 10 ML BTL OPB SCH ×3 (09:12→20:39)
[2020-08-24] MEDS: CETIRIZINE HCL 10 MG TABLET PO SCH ×2 (09:12→21:56)
[2020-08-24] MEDS: HYDROCORTISONE 1% CRM 30 GM TUBE EXT SCH ×2 (09:13→21:56)
[2020-08-24] MEDS: ENOXAPARIN INJ 40 MG/0.4 ML SYR SQ SCH (09:14)
[2020-08-24] MEDS: BRIMONIDINE TARTRATE 0.2% 5ML OPB SCH ×3 (09:15→20:39)
[2020-08-24] MEDS: POTASSIUM CHLORIDE CRTAB 20 MEQ TABCR PO SCH (09:18)
[2020-08-24] MEDS: INSULIN ASPART 100 UNITS/ML 3 ML PEN SC SCH ×4 (09:27→21:56)
[2020-08-24] MEDS: INSULIN GLARGINE SOLOSTAR 100 UNITS/ML 3 ML PEN SQ SCH (09:28)
[2020-08-24] MEDS ORDERED: MECLIZINE 12.5 MG TAB PO PRN (10:44)
--- NOTE | 2020-08-24 10:55 | Hospitalist Progress Note ---
Date of Service August 24, 2020 Assessment & Plan (1) Cellulitis: Benito Goel is a 64-year-old male with past medical history significant for hypertension, diabetes, hyperlipidemia who presents for concerns of lump on chest over the last week. Small abscess spontaneously ruptured at alf and was on Bactrim and clinda but had allergic reaction. Then was on IV ceftriaxone Was also having lower lip swelling, rash on body and more localized rash around right pectoralis region as a reaction to tape adhesive. With fever, tachycardia, elevated lactate, procal + on admission Was given IVFs and IV Vanco/Ceftriaxone here -Soft tissue ultrasound of chest wall demonstrating thickening with increased echogenicity within the subcu fat favoring cellulitis as well as a small pocket of phlegmon vs residual abscess -CT chest without contrast demonstrating fat stranding without visualization of fluid collection or abscess Appreciate Surgery consult-no I&D needed right now Lactate initially elevated in ED with subsequent downtrend Procal trending downward, WBC count up but now on prednisone for allergic reaction MRSA swab negative Abscess and cellulitis now much improved, with some chronic skin changes that will take time to resolve but erythema improving. Is afebrile now. BCxs no growth to date -Continue vancomycin coverage alone for now and plan to convert to doxy on discharge to complete 7-10 day course Follow CBC, BMP, Procal in AM - Blood cultures - NGTD (2) Sepsis: as above, secondary to cellulitis/abscess and was POA (3) Drug eruption: secondary to clinda vs Bactrim as outpt as well as reaction to tape adhesive With rash on all limbs and trunk that is maculopapular, erythematous, very itchy--> now improving with prednisone and Zyrtec, benadryl -removed residual tape adhesive still on skin -continue on prednisone 50mg po daily x 5 day course continue Zyrtec but increase to 10mg po bid for continued itching -continue benadryl of note, he was given IM SOlu Medrol at the alf just prior to admission -continue topical hydrocortisone to rash no evidence of angioedema or anaphylaxis although there was report of lower lip swelling at prion prior to arrival (4) HTN (hypertension): stable continue home lisinopril (5) HLD (hyperlipidemia): continue home statin, ASA (6) Diabetes: with significant hyperglycemia here now improved with adding home Lantus back plus tightening Novolog A1C severely uncontrolled at 11.3% Continue Lantus 60 units -continue current Novolog and may need extra insulin with being on burst of prednisone, but will monitor -hold home metformin -unsure if has oversight of glucose and insulin administration at alf but needs improvement in control (7) Glaucoma: continue home eye drops (8) Hepatitis C: noted in history, unclear if has been treated (9) Chronic prostatitis: noted, sees Urology no acute issues, making urine and getting it out (10) Pulmonary nodule: noted on CT chest here with 5 and 7mm right sided nodules f/u as outpt with repeat imaging CT Chest in 3 months (11) DVT prophylaxis: SQ Lovenox Dispo-continued stay, eventually back to alf in 1-2 days if cellulitis continues to improve and allergic drug rash improving Admission and Anticipated Discharge Date Admission Date: August 21, 2020 Subjective He reports cellulitis is improving. "one lump left". Drug eruption rash mostly resolved. c/o episodic vertigo this morning. Similar occurrence a week ago but not before this. No extremity weakness or change in sensation. No facial droop. Review of Systems Review of Systems: All systems reviewed & are unremarkable except as noted in HPI & below Physical Exam Constitutional: WD/WN, vitals as above Eyes: + anicteric sclerae; normal pupil size ENMT: external ear and nose normal, oropharynx normal Neck: trachea midline, no thyromegaly Respiratory: normal respiratory effort, lungs clear to auscultation Cardiovascular: RRR, no murmur, no edema Chest (Breasts): Chest: + abnormal inspection of chest (rt pectoralis region w/ darkened skin,small fluctuence central all improved) Gastrointestinal (Abdomen): normal bowel sounds, soft, nontender, no hepatosplenomegaly Musculoskeletal: Extremities: extremities normal to inspection; no cyanosis and no clubbing Neurologic: moves all extremities and awake; no focal motor deficits Psychiatric: A+Ox3, euthymic affect Lymphatic: no lymphedema Results & Data Results & Data ([facility]) Vital Signs (Past 12 Hours) Vital Signs Temp Pulse Resp BP Pulse Ox 08/24/20 06:24 36.7 C 54 L 17 122/70 94 08/24/20 03:00 60 14 143/61 H 96 PG Care Time/CCT Total # of Minutes Spent Total Time Spent with Patient: Total time spent is greater than 50% in coordination of care (as documented) at patient's floor/unit and/or counseling patient: Coding Level of Care Code 50014 Subseq Hosp Care Lvl 2 Diagnoses Cellulitis L03.90 Site of cellulitis: unspecified site Sepsis A41.9 Sepsis acute organ dysfunction status: unspecified Sepsis type: sepsis due to unspecified organism Drug eruption L27.0 HTN (hypertension) I10 HLD (hyperlipidemia) E78.5 Diabetes E11.9 Glaucoma H40.9 Hepatitis C B19.20 Chronic prostatitis N41.1 Pulmonary nodule R91.1 DVT prophylaxis Z29.9 (1) Cellulitis Site of cellulitis: unspecified site Qualified Code(s): L03.90 - Cellulitis, unspecified (2) Sepsis Sepsis acute organ dysfunction status: unspecified Sepsis type: sepsis due to unspecified organism Qualified Code(s): A41.9 - Sepsis, unspecified organism
--- NOTE | 2020-08-24 13:44 | Electrocardiogram Report ---
Test Reason : Blood Pressure : / mmHG Vent. Rate : 057 BPM Atrial Rate : 057 BPM P-R Int : 154 ms QRS Dur : 104 ms QT Int : 412 ms P-R-T Axes : 054 000 -06 degrees QTc Int : 401 ms Sinus bradycardia Nonspecific T wave abnormality Abnormal ECG When compared with ECG of 21-AUG-2020 18:57, Vent. rate has decreased BY 66 BPM QRS duration has increased Non-specific change in ST segment in Lateral leads Confirmed by Calvin Elizabeth ([id number]) on 08/24/2020 1:44:15 PM Referred By: [facility] Confirmed By:Calvin Elizabeth
[2020-08-24] MEDS: IBUPROFEN 600 MG TAB PO PRN (16:52)
[2020-08-24] MEDS: LATANOPROST 0.005% OP SOLN 2.5 ML BTL OPB SCH (20:39)
[2020-08-25] MEDS ORDERED: VANCOMYCIN TROUGH ONE (05:30)
[2020-08-25] MEDS: VANCOMYCIN HCL 1,500 MG in SODIUM CHLORIDE 0.9% 500 ML IV SCH (06:24)
[2020-08-25 06:59] LABS: Creatinine Clr Calc Pharmacy 126.3 ml/min; Est GFR (African American) 112.7 ml/min; Est GFR (Non-African American) 97.3 ml/min
--- NOTE | 2020-08-25 07:35 | Pharmacy Report ---
Pharmacy Abx Dose Short Note - Date of Service August 25, 2020 - Assessment & Plan Assessment 64 year old M receiving vancomycin monotherapy for treatment of chest wall cellulitis. Abscess & cellulitis much improved per hospitalist note yesterday. Vancomycin trough level drawn appropriately this AM and was a 12hr level. Renal function stable. Day # 5 of antimicrobial therapy. Plan Vancomycin * Trough level of 12.2mcg/mL is therapeutic * Continue dose of 1500mg IV every 12 hours * Goal trough level for cellulitis : 10-15 mcg/mL * Will obtain another steady state trough level in 3-5 days if continued on IV therapy, or sooner if renal function declines. Pharmacy will continue to follow and will adjust dose/frequency as necessary. Thank you.
[2020-08-25] MEDS: ASPIRIN 81 MG ECTAB PO SCH (09:19)
[2020-08-25] MEDS: predniSONE 50 MG TAB PO SCH (09:19)
[2020-08-25] MEDS: POTASSIUM CHLORIDE CRTAB 20 MEQ TABCR PO SCH (09:19)
[2020-08-25] MEDS: ATORVASTATIN 20 MG TAB PO SCH (09:19)
[2020-08-25] MEDS: lisinopril 5 MG TAB PO SCH (09:19)
[2020-08-25] MEDS: ENOXAPARIN INJ 40 MG/0.4 ML SYR SQ SCH (09:20)
[2020-08-25] MEDS: CETIRIZINE HCL 10 MG TABLET PO SCH (09:20)
[2020-08-25] MEDS: HYDROCORTISONE 1% CRM 30 GM TUBE EXT SCH (09:21)
[2020-08-25] MEDS: DORZOLAMIDE HCL 2% OPH SOLN 10 ML BTL OPB SCH (09:21)
[2020-08-25] MEDS: BRIMONIDINE TARTRATE 0.2% 5ML OPB SCH (09:22)
[2020-08-25] MEDS: INSULIN ASPART 100 UNITS/ML 3 ML PEN SC SCH ×2 (09:25→12:56)
[2020-08-25] MEDS: INSULIN GLARGINE SOLOSTAR 100 UNITS/ML 3 ML PEN SQ SCH (09:26)
[2020-08-25] MEDS ORDERED: PHARMACY GLYCEMIC MGMT CONSULT PRN (10:40)
--- NOTE | 2020-08-25 11:08 | Discharge Summary ---
Date of Service August 25, 2020 Admission HPI Per Admitting Provider Benito Goel is a 64-year-old male with past medical history significant for hypertension, diabetes, hyperlipidemia; who presents for concerns of lump on chest over the last week. Earlier this week patient noticed a lump/fluid collection over his right pec, this reportedly ruptured spontaneously several days ago. However over the last 2 days he has noticed new accumulation of fluid in that same spot with new onset of fevers, chills, sweats throughout this time. Was trialed on Bactrim, then Clinda, then Rocephin without success and resolution of infectious concern prior to presentation to the hospital this ev ening. Does not recall any history of boils that required lancing, or abscesses that required surgical drainage. Does not recall any history of MRSA infections. Admission Exam Per Admitting Provider Constitutional: WD/WN, vitals as above Eyes: PERRL, conjunctivae normal, anicteric sclerae Respiratory: normal respiratory effort, lungs clear to auscultation Auscultation: no crackles, no rales, no rhonchi and no wheezes Cardiovascular: Rate/Rhythm: regular rate and regular rhythm Heart Sounds: no gallop, no murmur and no cardiac rub Vessels: normal peripheral pulses; no JVD Extremities: no edema Gastrointestinal (Abdomen): Inspection/Auscultation: normal bowel sounds; abdomen not distended Percussion/Palpation: abdomen soft; abdomen nontender and no guarding Musculoskeletal: no cyanosis or clubbing, extremities motor strength 5/5 Skin: Hyperpigmented patch over right pectoral muscle with signs of previous fluid collection, and erythema; without fluctuance, or tenderness Neurologic: PERRL, EOMI, accommodation nl, no face palsy, no dysarthria CN's II-XI intact bilaterally and moves all extremities Psychiatric: Orientation: alert and oriented x 3 Principal Diagnosis Chest wall cellulitis Vertigo Drug reaction rash Discharge Exam Constitutional WD/WN, vitals as above Eyes + anicteric sclerae; normal pupil size ENMT external ear and nose normal, oropharynx normal Neck trachea midline, no thyromegaly Respiratory normal respiratory effort, lungs clear to auscultation Cardiovascular RRR, no murmur, no edema Chest (Breasts) Chest: + abnormal inspection of chest (rt pectoralis region w/ darkened skin,small fluctuence central all improved) Gastrointestinal (Abdomen) normal bowel sounds, soft, nontender, no hepatosplenomegaly Musculoskeletal Extremities: extremities normal to inspection; no cyanosis and no clubbing Skin no rashes, warm and dry Neurologic moves all extremities and awake; no focal motor deficits Psychiatric A+Ox3, euthymic affect Lymphatic no lymphedema Discharge Data Allergies Allergy/AdvReac Type Severity Reaction Status Date / Time clindamycin Allergy Rash Verified 08/21/20 19:53 Pork/Porcine Containing Allergy Unknown Verified 08/21/20 19:53 Products sulfamethoxazole Allergy Rash Verified 08/21/20 19:53 [From Bactrim] trimethoprim [From Bactrim] Allergy Rash Verified 08/21/20 19:53 sodium chloride AdvReac Unknown Verified 08/21/20 19:53 [From Rogers Nasal] Consultations 08/21/20 19:49 ED Decision to Admit Stat 08/22/20 09:50 Consult General Surgery Routine Ordered Studies 08/21/20 18:20 US softtissue chstwall/uprback Stat 08/21/20 21:57 CT chest diagnostic wo con Urgent Diabetes Follow up Diabetes Follow-up Needed for HgbA1c >9% Hospital Course (1) Cellulitis: Benito Goel is a 64 year old male who presents to the ER with failed outpatient treatment for chest wall cellulitis. Initially treated with clindamycin and reportedly had a reaction to this, subsequently switched to ceftriaxone and Bactrim as an outpatient with lip swelling therefore was sent to the ER for further treatment. He clinically improved with IV vancomycin alone therefore suspected MRSA causing his cellulitis although this has not been confirmed on microbiology. Blood culture negative after 48 hours. He will be switched to doxycycline alone for additional 7 days on discharge. If getting worse consider addition Keflex or Augmentin although given prior drug reaction possible to ceftriaxone (although statistically more likely Bactrim) will avoid beta-lactams and cephalosporins currently. Of note his HbA1C 11.6 suggestive of poor glucose control. Please follow this up as an outpatient. He was also noted to have intermittent episodic vertigo during his admission. Most consistent with BPPV and recommend this is followed up as an outpatient with teaching of Samantha's manoeuvre. (2) Pulmonary nodule: noted on CT chest here with 5 and 7mm right sided nodules f/u as outpt with repeat imaging CT Chest in 3 months (3) Sepsis: (4) Drug eruption: (5) HTN (hypertension): (6) HLD (hyperlipidemia): (7) Diabetes: (8) Glaucoma: (9) Hepatitis C: (10) Chronic prostatitis: Total Time Total Time Spent Total Time Spent (In Minutes): 45 Total Time Includes: Examination of the Patient, Discharge Planning, Medication Reconciliation and Communication With Other Providers Discharge Plan Discharge Items Patient Disposition: [facility] Reason For Visit: CHEST WALL CELLULITIS Discharge Diagnosis: Chest wall cellulitis Vertigo Drug reaction rash Activity: Resume your previous activity Non-emergency contact: Primary Care Provider Call non-emergency contact if: you have any medication questions and your symptoms worsen Follow-up/Referrals: Dana WILSON [Primary Care Provider] - Diet: Carb Consistent or DM2 Addtl Attending Provider Instructions: Benito Goel is a 64 year old male who presents to the ER with failed outpatient treatment for chest wall cellulitis. Initially treated with clindamycin and reportedly had a reaction to this, subsequently switched to ceftriaxone and Bactrim as an outpatient with lip swelling therefore was sent to the ER fir further treatment. He clinically improved with IV vancomycin alone therefore suspected MRSA causing his cellulitis although this has not been confirmed on microbiology. Blood culture negative after 48 hours. He will be switched to doxycycline alone for additional 7 days on discharge. If getting worse consider addition Keflex or Augmentin although given prior drug reaction possible to ceftriaxone (although statistically more likely Bactrim) will avoid beta-lactams and cephalosporins currently. Of note his HbA1C 11.6 suggestive of poor glucose control. Please follow this up as an outpatient. He was also noted to have intermittent episodic vertigo during his admission. Most consistent with BPPV and recommend this is followed up as an outpatient with teaching of Samantha's manoeuvre. Pending Studies at Discharge: No Stand-Alone Forms: My [facility] Skilled Items Patient informed of condition?: Yes Discharge Level of Care: Other Communicable Disease: No Discharge Prognosis: Stable Lines: None Urinary Catheter: No Medications and DC Order Prescriptions: New diphenhydramine HCl [Benadryl] 25 mg Capsule 50 mg PO TID PRN (Reason: itching) Qty: 7 RF: 0 doxycycline hyclate 100 mg tablet 100 mg PO BID 7 Days Qty: 14 RF: 0 Continued metformin 500 mg Tablet 500 mg PO BID RF: 0 atorvastatin 20 mg Tablet 20 mg PO DAILY RF: 0 Semglee U-100 Insulin 100 unit/mL Solution 60 unit SUBCUT DAILY RF: 0 cetirizine 10 mg Tablet 10 mg PO DAILY RF: 0 aspirin 81 mg Tablet,Delayed Release (Dr/Ec) 81 mg PO DAILY RF: 0 timolol 0.5 % Drops 1 drp OPB QAM RF: 0 lisinopril 5 mg Tablet 5 mg PO DAILY RF: 0 ibuprofen 600 mg Tablet 600 mg PO TID PRN (Reason: Pain) RF: 0 latanoprost 0.005 % Drops 1 drp OPB HS RF: 0 dorzolamide 2 % Drops 1 drp OPB TID RF: 0 brimonidine 0.2 % Drops 1 drp OPB TID RF: 0 Discontinued diphenhydramine HCl 50 mg Capsule 50 mg PO TID RF: 0 methylprednisolone sodium succ [Solu-Medrol] 125 mg Recon Soln 125 mg IM DAILY RF: 0 ceftriaxone 1 gram Piggyback 1 g IV DAILY RF: 0 capsaicin 0.025 % Cream 1 applic TOPICAL BID RF: 0 Discharge Orders: Discharge Order (Routine); Ordered 08/25/20 Ordered By: Mamadou Snyder/Other Patient Handouts: Managing Type 2 Diabetes, A1C Admission Data Admit Date/Time: 08/21/20 22:03 Attending Provider: Mamadou Sylvester Admit Provider: Baljeet Sparks Primary Care Provider: Dana WILSON Other Providers: Marin Barrera ; Celia Kirkpatrick Other Interventions: Discharge Summary Assessment (RN) Last Done: 08/25/20 12:28 Coding Level of Care Code D/C Day Management >30 mins Diagnoses Cellulitis L03.90 Site of cellulitis: unspecified site Pulmonary nodule R91.1 Sepsis A41.9 Sepsis acute organ dysfunction status: unspecified Sepsis type: sepsis due to unspecified organism Drug eruption L27.0 HTN (hypertension) I10 HLD (hyperlipidemia) E78.5 Diabetes E11.9 Glaucoma H40.9 Hepatitis C B19.20 Chronic prostatitis N41.1
== END 2020-08-25 13:44 | DRG 872 ==
LOC: ED 17:56 → SUATTDRO 22:03 → 3N 22:03